=== PATIENT | male | born 1955 | race African-American/Black ===

== ENCOUNTER 2018-02-06 09:16 | Outpatient (CLI) | payer OTHER | END 2018-02-06 09:17 | disposition home or self-care (01) | LOC: BICRAD 09:16 | PROVIDERS: ATTEND Internal Medicine Rheumatology | DX: M17.0 Bilateral primary osteoarthritis of knee (principal) ==

== ENCOUNTER 2019-06-29 12:28 | Day surgery (SDC) | payer OTHER ==
[2019-06-28 15:49] VITALS: BMI 36.5
[2019-06-29 12:47] LABS: #Lymphocytes 1.8 thou/uL (1.20-3.40); #Monocytes 0.8 thou/uL (0.11-0.59); #Neutrophils 8.4 thou/uL (1.40-6.50); %Basophils 0.1 % (0.0-1.0); %Eosinophils 8.6 % (0.0-10.0); %Lymphocytes 14.9 % (21.0-51.0); %Monocytes 6.6 % (0.0-10.0); %Neutrophils 69.8 % (42.0-75.0); Hemoglobin 14.1 g/dL (14.0-18.0); Mean Corpuscular HGB CONC 32.5 g/dL (32.0-36.0); Mean Corpuscular Hemoglobin 32.5 pg (27.0-31.0); Mean Platelet Volume 7.2 fL (7.4-10.4); Platelet Count 273 thou/uL (130-400); RBC Distribution Width 11.8 % (11.5-14.5); Red Blood Cell (RBC) Count 4.33 mill/uL (4.70-6.10)
[2019-06-29 13:00] LABS: PTT 25.7 SEC (22.9-36.1); Prothrombin Time 13.4 SEC (12.0-14.7)
[2019-06-29] MEDS ORDERED: Lidocaine 1% PF 5 ML VIAL ONE (13:25)
--- NOTE | 2019-06-29 14:17 | ULT ---
US Thoracentesis History: Pleural fluid Comparison: Chest radiograph 2014 Findings: Patient was brought to the ultrasound suite. All questions were answered. Informed consent was obtained. Timeout performed. The patient's right back was prepped and draped in normal sterile fashion. 5 mL lidocaine was used to anesthetize the superficial and deep soft tissues. Under ultrasound guidance a 5 Tamazight catheter was placed with tip in the right pleural space. 900 mL of red-tinged fluid was aspirated. The patient tolerated the procedure well without complication. Impression: Technically successful right ultrasound-guided thoracentesis with removal of 900 mL red-t inged fluid.
[2019-06-29 14:38] VITALS: BP 134/78; TEMP 98.6
== END 2019-06-29 14:15 | disposition home or self-care (01) ==
LOC: ULT 12:28
PROVIDERS: ATTEND Internal Medicine
DX: C80.1 Malignant (primary) neoplasm, unspecified (principal); J91.0 Malignant pleural effusion; I10 Essential (primary) hypertension; M06.9 Rheumatoid arthritis, unspecified; Z88.5 Allergy status to narcotic agent
CPT/HCPCS: 36415; 76942; 83615; 84157; 85025; 85610; 85730; 87070; 87116; 87205; 87206; 88112; 88305; 88341; 88342; J2001

== ENCOUNTER 2019-07-10 10:40 | Inpatient (IN) | payer OTHER ==
--- NOTE | 2019-07-10 10:56 | CT ---
CT head noncontrast HISTORY: CVA. Right facial droop. Findings centered at the left posterior temporal and occipital region is a wedge-shaped subtle area o f decreased density extending through the overlying cerebral cortex measuring up to 4.6 cm greatest width at the base. No hemorrhage is apparent. No mass effect or shift of midline structures. Visualized paranasal sinuse s remain well aerated. IMPRESSION: Subtle early area of cytotoxic edema associated with the posterior distribution of left m iddle cerebral artery. Consistent with an acute infarct. Findings were called to Dr. Copeland in the emergency department at 1047 hours. Code CR.
--- NOTE | 2019-07-10 11:13 | CT ---
EXAM: CT angiogram great vessels neck with IV contrast and three-dimensional reconstructions CT angiogram brain with IV contrast and three-dimensional reconstructions PROVIDED CLINICAL HISTORY: Stroke COMPARISON: None FINDINGS: There is a normal three-vessel configuration of the great vessels at the arch. The common carotid, internal carotid, subclavian and vertebral arteries demonstrate no evidence for s ignificant stenosis. There is no evidence for focal vessel stenosis, branch occlusion or aneurysm involving the intracrani al circulation. There is partially visualized patchy consolidation involving the right hemithorax with apparently par tially loculated fluid at the right lung apex. Multiple enlarged lymph nodes are seen in the right supraclavicular and internal jugular regions. Possible mass involving the right hilum versus adenopat hy. There is a lytic lesion with associated bone destruction and adjacent soft tissue mass involving the medial right clavicle IMPRESSION: 1. Normal CT angiogram of the great vessels of the neck. 2. Normal CT angiogram of the brain. 3. Right hemithoracic and supraclavicular abnormalities as described above, compatible with neoplasm. Correlation with nonemergent dedicated thoracic imaging is recommended if not previously performed.
[2019-07-10 11:15] LABS: ALT (SGPT) 32 U/L (8-55); AST (SGOT) 21 U/L (5-34); Alkaline Phosphatase 72 U/L (40-110); Anion Gap 17 mmol/L (10-20); BUN (Urea Nitrogen) 22 mg/dL (8.4-25.7); Bilirubin, Total 0.6 mg/dL (0.2-1.2); Calc. Creatinine Clearance 0 mL/min (70-130); Calcium 9.8 mg/dL (7.8-10.44); Carbon Dioxide 24 mmol/L (23-31); Chloride 101 mmol/L (98-107); Estimated GFR-MDRD 54; Glucose 121 mg/dL (80-115); INR-International Normal Ratio 1.2; PTT 25.8 SEC (22.9-36.1); Prothrombin Time 14.7 SEC (12.0-14.7); Sodium 138 mmol/L (136-145)
[2019-07-10 11:26] LABS: #Basophils 0.1 thou/uL (0.0-0.2); #Lymphocytes 2.3 thou/uL (1.20-3.40); #Monocytes 1.3 thou/uL (0.11-0.59); #Neutrophils 10.5 thou/uL (1.40-6.50); %Basophils 0.4 % (0.0-1.0); %Eosinophils 17.6 % (0.0-10.0); %Lymphocytes 13.5 % (21.0-51.0); %Monocytes 7.7 % (0.0-10.0); %Neutrophils 60.8 % (42.0-75.0); Hemoglobin 15.3 g/dL (14.0-18.0); Mean Corpuscular HGB CONC 33.4 g/dL (32.0-36.0); Mean Corpuscular Hemoglobin 32.2 pg (27.0-31.0); Mean Corpuscular Volume 96.5 fL (78.0-98.0); Mean Platelet Volume 7.8 fL (7.4-10.4); Platelet Count 104 thou/uL (130-400); Platelet Morphology Comment Appears Decreased; RBC Distribution Width 11.9 % (11.5-14.5); Red Blood Cell (RBC) Count 4.73 mill/uL (4.70-6.10); White Blood Cell (WBC) Count 17.3 thou/uL (4.8-10.8)
[2019-07-10 11:27] LABS: MDiff Complete? YES
[2019-07-10] MEDS ORDERED: Iopamidol-370 76% 500 ML 1 ML ONE (11:49)
[2019-07-10] MEDS ORDERED: Clopidogrel Bisulfate 75 MG TAB ONE (11:51)
[2019-07-10 12:16] LABS: CKMB 4.7 ng/mL (0-6.6)
[2019-07-10] MEDS ORDERED: Acetaminophen 500 MG TAB ONE (13:08)
[2019-07-10] MEDS ORDERED: Aspirin 325 MG TAB ONE (13:54)
[2019-07-10] MEDS ORDERED: Bisacodyl 10 MG SUPP PR PRN (13:55)
[2019-07-10] MEDS ORDERED: Aspirin Chewable 81 MG TAB ONE (13:55)
[2019-07-10] MEDS ORDERED: Ondansetron PF 4 MG/2 ML Vial IVP PRN (13:55)
[2019-07-10] MEDS ORDERED: Ondansetron ODT 4 MG TAB PO PRN (13:55)
[2019-07-10] MEDS ORDERED: Senokot S 8.6-50 MG TAB PO PRN (13:55)
[2019-07-10] MEDS ORDERED: hydrALAZINE 20 MG/ML VIAL SLOW IVP PRN (13:55)
[2019-07-10] MEDS ORDERED: Enoxaparin Sodium 40 MG/0.4 ML SYRINGE SC SCH (14:00)
[2019-07-10] MEDS ORDERED: Sodium Bicarbonate 75 MEQ in Sodium Chloride 0.45% 1,000 ML IV SCH (14:15)
[2019-07-10 14:28] LABS: Troponin I 1.324 ng/mL (< 0.028)
[2019-07-10 14:59] VITALS: BMI 25.4
--- NOTE | 2019-07-10 15:30 | HP ---
PRIMARY CARE PHYSICIAN: None listed. CHIEF COMPLAINT: Slurred speech and right facial droop. HISTORY OF PRESENT ILLNESS: A 63-year-old male with known history of hypertension and rheumatoid arthritis as well as recent diagnosis of lung cancer, not yet on chemotherapy, brought in by EMS due to acute onset of slurred speech and right facial droop noticed on waking up this morning around 8 o'clock. The patient was last seen well last night when he went to bed. There was no associated overt weakness of the limbs, and the patient was able to ambulate. Further evaluation in the ED showed abnormal CT scan with subtle early area of cytotoxic edema associated with the posterior distribution of left middle cerebral artery consistent with acute infarct. The patient also was noticed to have abnormal Q waves in inferior leads associated with elevated troponin, concerning for acute CO, though the patient denied any chest pain, shortness of breath, palpitation, or dizziness. There is no history of cough, shortness of breath, fever, dizziness, abdominal pain, leg swelling, nausea, vomiting, change in bowel habit, hematuria, hematochezia, melena, or weight loss. The patient admitted to headache and urinary urgency. He has history of BPH and is on Flomax. The patient received Plavix in the ER, and it was felt that the patient was on methotrexate, but he had an adverse interaction with methotrexate, hence aspirin was not given. PAST MEDICAL HISTORY: 1. Hypertension. 2. Rheumatoid arthritis. 3. BPH. 4. Recent lung cancer diagnosis. PAST SURGICAL HISTORY: 1. Back surgery. 2. Thyroidectomy. 3. Left ankle surgery. 4. Left wrist surgery. FAMILY HISTORY: There is significant history of hypertension in parents who have now . SOCIAL HISTORY: The patient lives with spouse. He used to smoke about half a pack a day for several years, but stopped about 2 weeks ago. He denied alcohol or recreational drug use. The patient wants to be full code with spouse is his surrogate decision maker. ALLERGIES: NO KNOWN DRUG ALLERGIES REPORTED. MEDICATIONS: Prior to hospital medications: 1. Lisinopril/hydrochlorothiazide 20/12.5 one tablet p.o. daily. 2. Tamsulosin 0.4 mg daily. 3. Triamterene-hydrochlorothiazide 1 tablet p.o. daily. 4. Levothyroxine 200 mcg p.o. daily. 5. Note that the patient is no more on methotrexate and Remicade since diagnosis of lung cancer. REVIEW OF SYSTEMS: 12-point review of systems performed was negative other than pertinent positives and negatives included in the History of Present Illness. PHYSICAL EXAMINATION: VITAL SIGNS: Blood pressure 109/91, pulse 89, respiratory rate 16, and SpO2 of 98% on room air. GENERAL: Heavily built male, in no obvious distress. Afebrile. Anicteric. Acyanotic. HEENT: Normocephalic, atraumatic. Oral mucosa is moist. NECK: Supple with no JVD. CARDIOVASCULAR: Regular rhythm and rate with normal heart sounds 1 and 2. No murmur was appreciated. RESPIRATORY: Decreased air entry right hemithorax with some transmitted sound. Work of breathing was not increased. GI: Full, soft, nontender, nondistended with normal bowel sounds. EXTREMITIES: Bilateral wrist nodules and mild tenderness of left wrist noted. Otherwise, extremities are grossly normal looking atraumatic with no edema or erythema. 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 Oriented x3. Dysarthria and expressive and receptive aphasia noted. Cranial nerves 2 through 12 are grossly intact except mild right facial droop. The patient is able to have a conversation with some limitation due to dysarthria and aphasia. Moves all extremities with symmetric power. Questionable left upper limb weakness is noted, but this could be due to left wrist tenderness. There is however no pronator drift of both lower on upper limbs. DIAGNOSTIC DATA: CBC showed WBC count of 17, hemoglobin of 15, MCV of 96.5, and platelets of 104. Coagulation panel showed PT 14.7, INR 1.2, PTT 25.8. CMP showed sodium 138, potassium 4.0, chloride 101, CO2 of 24, BUN 22, creatinine 1.58, glucose 121, calcium 9.8, total bilirubin 0.6, AST 21, ALT 32, alkaline phosphatase 72, total protein 7.0, albumin 4.0, and globulin 3.0. Initial troponin showed CK 4.7, troponin 1.263. EKG showed normal sinus rhythm with inferior Q-waves, suggestive of inferior CO. CT scan of the brain showed wedge-shaped subtle area of decreased density extending through the overlying cerebral cortex measuring up to 4.6 cm in its greatest width at the base. No hemorrhage is apparent. Also, no mass effect or shift of midline structures were noticed. Visualized paranasal sinuses remain well aerated. CT angio of head and neck showed normal CT angio of great vessels of the neck. Normal CT angio of the brain. Right hemithoracic and supraclavicular abnormalities compatible with neoplasm. There is a partially-visualized patchy consolidation involving the right hemithorax with apparently partially-loculated fluid at the right lung apex. Multiple enlarged lymph nodes are seen in the right supraclavicular and internal jugular regions. Possible mass involving the right hilum versus adenopathy is noted as well as light thick lesion with associated bone destruction and adjacent soft tissue mass involving the medial right clavicle. ASSESSMENT: 1. Cerebral infarction involving the posterior distribution of left middle cerebral artery. 2. Rule out brain metastasis. 3. Metastatic lung cancer, yet on treatment. 4. Hypertension. 5. Benign prostatic hypertrophy. 6. Receptive and expressive aphasia, as well as dysarthria. 7. Rheumatoid arthritis. 8. Renal insufficiency: Most likely acute on chronic or acute. The patient is on double diuretic therapy, which may be responsible. PLAN: 1. Admit the patient to Stroke Unit. 2. We will get serial troponin. 3. We will start antiplatelet therapy with aspirin and Plavix given elevated troponin concerning for acute CO. 4. We will get MRI of the brain with and without contrast to rule in cerebrovascular accident and/or metastatic brain lesion. 5. We will allow permissive hypertension. 6. We will hold antihypertensives for now. 7. We will actually start IV fluid therapy with bicarb containing fluid given soft blood pressure and elevated creatinine. 8. Heart healthy diet will be commenced. 9. We will monitor blood glucose. 10. We will continue Flomax. 11. We will also start the patient on statin. 12. We will consult Neurology and Cardiology. 13. We will also get echocardiogram of the heart. 14. Code status, full code. Spouse is the surrogate decision maker. Further treatment to follow depending on hospital course. Job ID: [id number] [facility]
[2019-07-10 17:38] LABS: Critical Call Chem Troponin I RESULT DECREASING; Troponin I 1.322 ng/mL (< 0.028)
[2019-07-10] MEDS ORDERED: FLU VACC QS2019-20(6MOS UP)/PF 60 MCG/0.5 ML SYRINGE IM ONE (21:00)
[2019-07-10] MEDS: Atorvastatin Calcium 40 MG TAB PO SCH (21:49)
[2019-07-10] MEDS: Acetaminophen 325 MG TAB PO PRN (21:50)
[2019-07-10] MEDS: Famotidine 20 MG TAB PO SCH (21:50)
[2019-07-10] MEDS: Guaifenesin DM 100-10/5 ML UDCUP PO PRN (21:56)
[2019-07-11 05:33] LABS: Anion Gap 14 mmol/L (10-20); BUN (Urea Nitrogen) 21 mg/dL (8.4-25.7); Calc. Creatinine Clearance 67 mL/min (70-130); Carbon Dioxide 24 mmol/L (23-31); Chloride 101 mmol/L (98-107); Estimated GFR-MDRD 55; Potassium 4.1 mmol/L (3.5-5.1); Sodium 135 mmol/L (136-145)
[2019-07-11 05:34] LABS: ALT (SGPT) 25 U/L (8-55); AST (SGOT) 16 U/L (5-34); Albumin 3.4 g/dL (3.4-4.8); Alkaline Phosphatase 72 U/L (40-110); Bilirubin, Total 0.4 mg/dL (0.2-1.2); Calcium 9.2 mg/dL (7.8-10.44); Cardiac Risk 4.1 (Less than 4.5); Cholesterol 160 mg/dl (< 200 Desired); Globulin 2.8 g/dL (2.4-3.5); Glucose 93 mg/dL (80-115); HDL Cholesterol 39 mg/dL (>60 Neg Risk); LDL Cholesterol, Calculated 96 mg/dL; Protein, Total 6.2 g/dL (5.8-8.1); Triglycerides 126 mg/dL (Less than 150)
[2019-07-11 06:58] LABS: Band 9 % (5-11); Eosinophils 18 % (0-10); Hemoglobin 14.3 g/dL (14.0-18.0); Lymphocytes 19 % (21-51); MDiff Complete? YES; Mean Corpuscular HGB CONC 33.6 g/dL (32.0-36.0); Mean Corpuscular Hemoglobin 32.4 pg (27.0-31.0); Mean Corpuscular Volume 96.3 fL (78.0-98.0); Mean Platelet Volume 8.4 fL (7.4-10.4); Monocytes 2 % (0-10); Neutrophil 52 % (42-75); Platelet Count 111 thou/uL (130-400); Platelet Morphology Comment Appears Decreased; Red Blood Cell (RBC) Count 4.42 mill/uL (4.70-6.10); White Blood Cell (WBC) Count 17.2 thou/uL (4.8-10.8)
[2019-07-11 07:49] LABS: Bacteria/HPF None Seen HPF (None Seen); Bilirubin Negative (Negative); Blood, Urine 3+ (Negative); Clarity Clear (Clear); Glucose, Urine (Dipstick) Normal (Negative); Leukocyte Negative Leu/uL (Negative); Nitrite Negative (Negative); Protein, Urine (Dipstick) 20 mg/dL (Neg-Trace); RBC/HPF Greater than 50 HPF (0-3); Squamous Epithelial None Seen HPF (0-3); Urobilinogen Normal mg/dL (Less than 2); WBC/HPF 21-50 HPF (0-3)
[2019-07-11] MEDS: Famotidine 20 MG TAB PO SCH ×2 (10:00→20:35)
[2019-07-11] MEDS: Enoxaparin Sodium 40 MG/0.4 ML SYRINGE SC SCH (10:00)
[2019-07-11] MEDS: Aspirin 325 mg Enteric Coated Tablet PO SCH (10:00)
[2019-07-11] MEDS: Acetaminophen 325 MG TAB PO PRN ×2 (10:01→21:10)
--- NOTE | 2019-07-11 10:12 | MRI ---
EXAM: MRI Brain W WO Con PROVIDED CLINICAL HISTORY: Stroke COMPARISON: CT brain 07/10/2019 FINDINGS: There is gyriform cortical of restricted diffusion involving the posterior distribution of the left m iddle cerebral artery compatible with recent infarction. There are numerous bilateral punctate foci of restricted diffusion involving the cerebral white matter as well as several small foci involving t he cerebellum. There is a small focus of masslike enhancement involving the left frontal cortex (image 18 series 9) as well as several tiny foci of masslike enhancement involving the right posterior frontal cortex (for example image 20 series 9). The ventricular system appears normal in size and morphology. There is no evidence for intracranial h emorrhage. There is no shift of the midline structures. The basilar cisterns appear patent. Appropriate flow voids within the major intracranial vessels are demonstrated. The extracranial soft tissues and calvarial marrow signal demonstrate an unremarkable CT appearance. IMPRESSION: 1. Recent posterior distribution left MCA infarction. 2. Widespread small foci of restricted diffusion compatible with recent embolic strokes. 3. Foci of cortical enhancement involving both frontal lobes, suspicious for metastatic disease.
[2019-07-11] MEDS: Guaifenesin DM 100-10/5 ML UDCUP PO PRN ×2 (11:23→18:18)
--- NOTE | 2019-07-11 13:04 | PDOC.HOSPP ---
- Subjective Encounter Date: 07/11/19 Encounter Time: 10:32 Subjective: 63 y/o male with HTN, recently diagnosed R lung cancer admitted with acute onset of facial droop and aphasia. CT showed wedge shaped edema suggestive of acute CVA which now is confirmed by MRI. Feeling better. Still with aphasia and dysarthria but overall better. Complaining of some headache. - Objective Vital Signs & Weight: Vital Signs (12 hours) Temp Pulse Resp BP Pulse Ox 07/11/19 11:26 98.4 F 88 16 128/74 96 07/11/19 07:20 97 07/11/19 07:14 98.4 F 80 16 115/63 97 07/11/19 03:51 98.7 F 81 16 140/71 95 Weight Weight 209 lb I&O: 07/10/19 07/11/19 07/12/19 06:59 06:59 06:59 Intake Total 240 300 Balance 240 300 Result Diagrams: 07/11/19 04:46 07/11/19 04:46 Additional Labs: Accuchecks 07/11/19 07/11/19 07/10/19 10:31 06:11 20:00 POC Glucose 106 91 165 H 07/10/19 16:52 POC Glucose 116 H Hospitalist ROS - Medication Medications: Active Medications Generic Name Dose Route Start Last Admin Trade Name Freq PRN Reason Stop Dose Admin Acetaminophen 650 mg 07/10/19 13:55 07/11/19 10:01 Tylenol PO 650 mg Q4H PRN Administration Headache/Fever/Mild Pain (1-3) Aspirin 325 mg 07/11/19 09:00 07/11/19 10:00 Ecotrin PO 325 mg DAILY MCIHAEL Administration Atorvastatin Calcium 40 mg 07/10/19 21:00 07/10/19 21:49 Lipitor PO 40 mg HS MICHAEL Administration Enoxaparin Sodium 40 mg 07/11/19 09:00 07/11/19 10:00 Lovenox SC 40 mg 0900 MICHAEL Administration Famotidine 20 mg 07/10/19 21:00 07/11/19 10:00 Pepcid PO 20 mg BID MICHAEL Administration Guaifenesin/Dextromethorphan 15 ml 07/10/19 13:55 07/11/19 11:23 Robitussin Dm PO 15 ml Q4H PRN Administration Cough - Exam General Appearance: awake alert Eye: anicteric sclera ENT: normocephalic atraumatic, moist mucosa Neck: supple, symmetric Heart: RRR Respiratory - other findings: decreased air entry right hemithorax with transmitted sound. Gastrointestinal: soft, non-tender, non-distended, normal bowel sounds Extremities: no cyanosis, no edema Neurological: cranial nerve grossly intact, no new deficit Neurological - other findings: dysarthria and dysphasia noted. Moving all limbs. Psychiatric: A&O x 3 Hosp A/P (1) Acute CVA (cerebrovascular accident) Code(s): I63.9 - CEREBRAL INFARCTION, UNSPECIFIED Status: Acute (2) Rheumatoid arthritis Code(s): M06.9 - RHEUMATOID ARTHRITIS, UNSPECIFIED Status: Acute (3) Lung cancer, primary, with metastasis from lung to other site Code(s): C34.90 - MALIGNANT NEOPLASM OF UNSP PART OF UNSP BRONCHUS OR LUNG Status: Acute (4) HTN (hypertension) Code(s): I10 - ESSENTIAL (PRIMARY) HYPERTENSION Status: Acute (5) NURIS (acute kidney injury) Code(s): N17.9 - ACUTE KIDNEY FAILURE, UNSPECIFIED Status: Acute (6) Dysphasia due to cerebrovascular disease Code(s): I69.921 - DYSPHASIA FOLLOWING UNSPECIFIED CEREBROVASCULAR DISEASE Status: Acute (7) BPH (benign prostatic hyperplasia) Code(s): N40.0 - BENIGN PROSTATIC HYPERPLASIA WITHOUT LOWER URINRY TRACT SYMP Status: Acute (8) Elevated troponin Code(s): R79.89 - OTHER SPECIFIED ABNORMAL FINDINGS OF BLOOD CHEMISTRY Status : Acute (9) Abnormal ECG Code(s): R94.31 - ABNORMAL ELECTROCARDIOGRAM [ECG] [EKG] Status: Acute - Plan Continue antiplatelets and statin. Avoid antihypertensives for now Awaiting Echo Awaiting Neurology and cardiology consult. Start oral antibiotic for obstructive pneumonia/leucocytosis. Restart flomax and levothyroxine.
--- NOTE | 2019-07-11 14:32 | CON ---
DATE OF CONSULTATION: 07/11/2019 CONSULTING PHYSICIAN: Hospitalist Service. IMPRESSION: 1. Left posterior division middle cerebral artery stroke with minimal receptive aphasia. 2. Lung cancer. PLAN: 1. Continue aspirin and Lipitor as you have undertaken. 2. Review echocardiogram to rule out a cardioembolic source. HISTORY OF PRESENT ILLNESS: Mr. Manley is a 63-year-old man with no significant past history other than a recent diagnosis of lung cancer. He awoke with some difficulty speaking. He came into the hospital for evaluation. His initial CT scan of the brain showed some of early edema in the left MCA territory. MRI of the brain confirmed diffusion abnormality consistent with a stroke in the left MCA posterior division territory. His CT angiogram was unremarkable for any stenosis. He reports he is having some minimal difficulty understanding what people say. He denies any vision loss or lateralized weakness or numbness. He denies any prior history of transient deficits. He has no other cardiovascular risk factors. He is seeing Dr. Gallegos for evaluation and treatment of his lung cancer. He reports having a cough, but denies any shortness of breath, chest pain, or hemoptysis. PAST MEDICAL HISTORY: Otherwise, negative. ALLERGIES: CODEINE. SOCIAL HISTORY: No tobacco or alcohol. FAMILY HISTORY: Noncontributory. REVIEW OF SYSTEMS: Ten-system review of systems is otherwise negative. PHYSICAL EXAMINATION: VITAL SIGNS: Blood pressure 115/63, pulse 80, respirations 16, and temperature 98.4. HEENT: Pupils are equal and reactive. Conjunctivae are clear. Oropharynx clear. NECK: Supple. EXTREMITIES: No cyanosis, clubbing, or edema. NEUROLOGIC: He was alert and cooperative. His speech was fluent and clear. No cranial nerve deficits were noted. 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 There was no tremor or dysmetria. Sensation was intact to touch. He could sit at the bedside without any difficulty. He walks independently. LABORATORY STUDIES: White blood cell count 17.3, hemoglobin 15.3, and platelet count 104. Coagulation panel was normal. Chemistry panel is unremarkable with a cardiac risk ratio of 4.1. Urinalysis showed hematuria and 21 to 50 white cells. SUMMARY: This is a middle-aged man with a recent diagnosis of lung cancer. He presents with an area of acute ischemia in the left posterior division of the MCA. We will need to rule out a cardioembolic etiology, but given his cancer, he may be in a hypercoagulable state. I agree with current management. He appears otherwise stable and could be discharged shortly. Job ID: [id number]
--- NOTE | 2019-07-11 16:38 | CON ---
DATE OF CONSULTATION: HISTORY OF PRESENT ILLNESS: Albino Manley is a 63-year-old black male, who on June 29, 2019, underwent ultrasound-guided right thoracentesis with removal of 900 mL of blood-tinged fluid. This has come back as adenocarcinoma. He has not undergone treatment yet for that. He then was admitted yesterday after awakening with difficulty speaking. He denied any arm or leg weakness. Head CT revealed stroke of the distribution of the left middle cerebral artery. [place] [facility] [place] angiography revealed normal great vessels of the neck and of the brain. There are changes in the right lung, enlarged lymph nodes that are suspicious for malignancy. Today, he underwent a brain MRI, which revealed recent posterior distribution left middle cerebral artery infarction, widespread small focal changes compatible with recent embolic strokes, and cortical enhancement involving both frontal lobes, suspicious for metastatic disease. Mr. Manley denies ever having any cardiac problems in the past. He denies any chest discomfort, especially over the 24 hours prior to admission. PAST MEDICAL HISTORY: Hypertension, rheumatoid arthritis, benign prostatic hypertrophy, recent diagnosis of adenocarcinoma of the lung. PAST SURGICAL HISTORY: Back surgery, thyroidectomy, left ankle and left wrist surgery. MEDICATIONS: 1. Celebrex 200 b.i.d. 2. Folvite 1 mg daily. 3. Synthroid 200 mcg daily. 4. Lisinopril/hydrochlorothiazide 20/12.5 daily. 5. Flomax 0.4 mg daily. 6. Prednisolone 10 mg b.i.d. ALLERGIES: CODEINE. SOCIAL HISTORY: He smokes 1/2 pack per day. FAMILY HISTORY: Negative for coronary artery disease. REVIEW OF SYSTEMS: A 10-point review of systems is unremarkable. PHYSICAL EXAMINATION: VITAL SIGNS: Temperature 128/74, pulse of 88. HEENT: PERRL. NECK: Supple. CHEST: Clear. CARDIAC: S1 and S2 normal without any S3, S4, or murmurs. Carotid upstrokes normal without bruits. ABDOMEN: Normal bowel sounds without tenderness or organomegaly. The abdomen is obese. EXTREMITIES: Revealed no clubbing, cyanosis, or edema. NEUROLOGIC: Revealed some expressive aphasia and mild right facial droop. LABORATORY DATA: EKG revealed normal sinus rhythm. There is a Q wave in lead III, however, it is narrow. No significant Q wave in II or F and I doubt that this represents an inferior infarction. Hemoglobin 14.3, hematocrit 42.6, white count 17,200, and platelets 111,000. INR 1.2. Sodium 135, potassium 4.1, chloride 101, carbon dioxide 24, BUN 21, creatinine 1.56. Cholesterol 160, triglycerides 126, HDL 39, LDL 96. Troponin I 1.324. IMPRESSION: 1. [id number] myocardial infarction, type 2, probably secondary to his cerebrovascular accident. 2. Cerebrovascular accident with evidence of posterior distribution of left middle cerebral artery stroke. 3. Questionable brain metastasis in the frontal area. 4. Adenocarcinoma of the right lung, untreated yet at this time. 5. Hypertension. 6. Benign prostatic hypertrophy. 7. Rheumatoid arthritis. 8. Renal insufficiency. 9. LDL of 96. PLAN: Echocardiogram will be performed. The patient has not had any chest discomfort, and his troponin I elevation is probably due to his stroke. With a stroke and LDL of 96, he should be started on a statin with a goal of LDL less than 70. Consideration could be given to noninvasive testing as an outpatient. Job ID: [id number]
[2019-07-11] MEDS: Atorvastatin Calcium 40 MG TAB PO SCH (21:09)
[2019-07-11] MEDS: Doxycycline 100 MG CAP PO SCH (21:09)
[2019-07-11] MEDS: guaiFENesin ER 600 MG TAB PO SCH (21:10)
[2019-07-11] MEDS: Amoxicillin/Potassium Clav 875 MG TAB PO SCH (21:10)
[2019-07-12 05:58] LABS: Albumin 3.6 g/dL (3.4-4.8); Anion Gap 15 mmol/L (10-20); BUN (Urea Nitrogen) 18 mg/dL (8.4-25.7); BUN/Creatinine Ratio 11.69; Calc. Creatinine Clearance 68 mL/min (70-130); Calcium 9.6 mg/dL (7.8-10.44); Carbon Dioxide 26 mmol/L (23-31); Chloride 100 mmol/L (98-107); Estimated GFR-MDRD 56; Glucose 91 mg/dL (80-115); Phosphorus 3.6 mg/dL (2.3-4.7); Potassium 4.3 mmol/L (3.5-5.1); Sodium 137 mmol/L (136-145)
[2019-07-12] MEDS ORDERED: Levothyroxine Sodium 100 MCG TAB PO SCH (06:00)
[2019-07-12 06:08] LABS: Band 6 % (5-11); Eosinophils 16 % (0-10); Hemoglobin 13.8 g/dL (14.0-18.0); Lymphocytes 18 % (21-51); MDiff Complete? YES; Mean Corpuscular HGB CONC 33.1 g/dL (32.0-36.0); Mean Corpuscular Hemoglobin 32.1 pg (27.0-31.0); Mean Corpuscular Volume 96.9 fL (78.0-98.0); Monocytes 5 % (0-10); Neutrophil 55 % (42-75); Platelet Count 117 thou/uL (130-400); Platelet Morphology Comment Appears Decreased; RBC Distribution Width 11.9 % (11.5-14.5); Red Blood Cell (RBC) Count 4.31 mill/uL (4.70-6.10); White Blood Cell (WBC) Count 18.2 thou/uL (4.8-10.8)
[2019-07-12] MEDS: Amoxicillin/Potassium Clav 875 MG TAB PO SCH (08:37)
[2019-07-12] MEDS: Aspirin 325 mg Enteric Coated Tablet PO SCH (08:37)
[2019-07-12] MEDS: guaiFENesin ER 600 MG TAB PO SCH (08:38)
[2019-07-12] MEDS: Famotidine 20 MG TAB PO SCH (08:38)
[2019-07-12] MEDS: Doxycycline 100 MG CAP PO SCH (08:38)
[2019-07-12] MEDS: Acetaminophen 325 MG TAB PO PRN (08:38)
[2019-07-12] MEDS ORDERED: Folic Acid 1 MG TAB PO SCH (09:00)
[2019-07-12] MEDS ORDERED: Tamsulosin HCl 0.4 MG CAP PO SCH (09:00)
--- NOTE | 2019-07-12 09:15 | PDOC.HOSPP ---
- Subjective Encounter Date: 07/12/19 Encounter Time: 12:00 Subjective: Patient reports continued improvement in speech. No other complaints. Ambulating well and discharged to walking program by PT. Tolerating diet from speech therapy. - Objective Vital Signs & Weight: Vital Signs (12 hours) Temp Pulse Resp BP BP Pulse Ox 07/12/19 07:27 97.9 F 93 20 134/76 94 L 07/12/19 03:08 98.6 F 80 20 148/81 H 95 07/11/19 23:10 98.7 F 98 20 134/82 93 L Weight Weight 209 lb I&O: 07/11/19 07/12/19 07/13/19 06:59 06:59 06:59 Intake Total 240 900 900 Balance 240 900 900 Result Diagrams: 07/12/19 04:58 07/12/19 04:58 Additional Labs: Accuchecks 07/12/19 07/11/19 07/11/19 05:31 20:17 16:39 POC Glucose 88 109 111 H 07/11/19 10:31 POC Glucose 106 Hospitalist ROS - Review of Systems Constitutional: denies: fever, chills Respiratory: denies: cough, shortness of breath Cardiovascular: denies: chest pain, palpitations, orthopnea Gastrointestinal: denies: nausea, vomiting, abdominal pain Neurological: reports: change in speech - Medication Medications: Active Medications Generic Name Dose Route Start Last Admin Trade Name Freq PRN Reason Stop Dose Admin Acetaminophen 650 mg 07/10/19 13:55 07/12/19 08:38 Tylenol PO 650 mg Q4H PRN Administration Headache/Fever/Mild Pain (1-3) Amoxicillin/Clavulanate Potassium 875 mg 07/11/19 21:00 07/12/19 08:37 Augmentin PO 875 mg Q12HR MICHAEL Administration Aspirin 325 mg 07/11/19 09:00 07/12/19 08:37 Ecotrin PO 325 mg DAILY MICHAEL Administration Atorvastatin Calcium 40 mg 07/10/19 21:00 07/11/19 21:09 Lipitor PO 40 mg HS MICHAEL Administration Doxycycline Hyclate 100 mg 07/11/19 21:00 07/12/19 08:38 Vibramycin PO 100 mg BID MICHAEL Administration Enoxaparin Sodium 40 mg 07/11/19 09:00 07/11/19 10:00 Lovenox SC 40 mg 0900 MICHAEL Administration Famotidine 20 mg 07/10/19 21:00 07/12/19 08:38 Pepcid PO 20 mg BID MICHAEL Administration Folic Acid 1 mg 07/12/19 09:00 07/12/19 08:38 Folvite PO 1 mg DAILY MICHAEL Administration Guaifenesin 1,200 mg 07/11/19 21:00 07/12/19 08:38 Mucinex PO 1,200 mg Q12HR MICHAEL Administration Guaifenesin/Dextromethorphan 15 ml 07/10/19 13:55 07/11/19 18:18 Robitussin Dm PO 15 ml Q4H PRN Administration Cough Levothyroxine Sodium 200 mcg 07/12/19 06:00 07/12/19 06:11 Synthroid PO 200 mcg 0600 MICHAEL Administration Sodium Chloride 10 ml 07/10/19 13:55 07/11/19 21:10 Flush - Normal Saline IVF 10 ml PRN PRN Administration Saline Flush Tamsulosin HCl 0.4 mg 07/12/19 09:00 07/12/19 08:38 Flomax PO 0.4 mg DAILY MICHAEL Administration - Exam General Appearance: NAD, awake alert Eye: anicteric sclera ENT: moist mucosa Heart: RRR, no murmur, no gallops, no rubs Respiratory: CTAB, no wheezes, no rales, no ronchi Gastrointestinal: soft, non-tender, non-distended, normal bowel sounds Extremities: no cyanosis, no clubbing, no edema Neurological - other findings: some trouble word finding, but able to communicate decently Musculoskeletal: normal tone, normal strength, no muscle wasting Psychiatric: normal affect, normal behavior, A&O x 3 Hosp A/P (1) Acute CVA (cerebrovascular accident) Code(s): I63.9 - CEREBRAL INFARCTION, UNSPECIFIED Status: Acute (2) Dysphasia due to cerebrovascular disease Code(s): I69.921 - DYSPHASIA FOLLOWING UNSPECIFIED CEREBROVASCULAR DISEASE Status: Acute Plan: Speech therapy not yet able to evaluate (3) Elevated troponin Code(s): R79.89 - OTHER SPECIFIED ABNORMAL FINDINGS OF BLOOD CHEMISTRY Status : Acute Plan: likely due to stroke, Dr. Olson consulted, recommends strict control of cholesterol, reeval for possible cardiac testing as outpatient (4) Leukocytosis Code(s): D72.829 - ELEVATED WHITE BLOOD CELL COUNT, UNSPECIFIED Status: Acute Plan: present on admission, placed on antibiotics in case of post obstructive pneumonia from the lung cancer, no symptoms currently, will discharge with a further 9 days of antibiotics (5) NURIS (acute kidney injury) Code(s): N17.9 - ACUTE KIDNEY FAILURE, UNSPECIFIED Status: Acute Plan: uncertain if underlying chronic disease, stable (6) Lung cancer, primary, with metastasis from lung to other site Code(s): C34.90 - MALIGNANT NEOPLASM OF UNSP PART OF UNSP BRONCHUS OR LUNG Status: Acute Qualifiers: Laterality: right Qualified Code(s): C34.91 - Malignant neoplasm of unspecified part of right bronchus or lung Plan: adenocarcinoma, likely metastasis to brain - Plan continue antibiotics, PT/OT, speech therapy Patient given instructions for thickened liquids and chopped foods by speech therapy, family understands importance of following these. Patient cleared for discharge by Neuro and Cardiology. Has a PET scan scheduled for . Will d /c home. HH with speech therapy. F/u with oncology for PET and further treatment for cancer.
[2019-07-12] MEDS: Enoxaparin Sodium 40 MG/0.4 ML SYRINGE SC SCH (09:59)
[2019-07-12 15:31] VITALS: BP 128/65; TEMP 98.5
--- NOTE | 2019-07-12 21:02 | CON ---
DATE OF CONSULTATION: REASON FOR CONSULT: Lung cancer. HISTORY OF PRESENT ILLNESS: Mr. Manley is a 63-year-old male, who was seen in urgent care in late May and had a CT angio of his chest, which showed an ill-defined mass or conglomeration of lymph nodes in the right hilum plus a 22 mm soft tissue nodule in the chest. He underwent a thoracentesis with removal of 900 mL of red tinged fluid, it showed metastatic adenocarcinoma, likely lung primary. He had lost about 5 pounds. He had a poor appetite and had frequent diarrhea. He was seen by Dr. Gallegos on July 06 and was scheduled for an MRI of the brain and a PET scan. He presented to the emergency room on the with slurred speech and right-sided facial droop. He underwent a CT scan and then a brain MRI, which showed no evidence of metastatic lesion; however, he did have a posterior left MCA infarction. He continues to have some slurred speech and mild dysphagia. He has some visual changes, but no neuromuscular changes in his arms or legs. He is ambulatory. Denies any complaints at this time. We were asked to see him regarding further workup. PAST MEDICAL HISTORY: 1. Hypertension. 2. Newly diagnosed metastatic lung cancer with malignant pleural effusion. 3. Arthritis. 4. Hypothyroidism. PAST SURGICAL HISTORY: 1. Back surgery. 2. Thoracentesis. ALLERGIES: CODEINE. HOME MEDICATIONS: 1. Celebrex. 2. Folic acid. 3. Levothyroxine. 4. Lisinopril. 5. Prednisone. 6. Flomax. FAMILY HISTORY: Hypertension. SOCIAL HISTORY: , lives with his spouse. History of smoking half pack for 30 years. Social drinker. No illicit drug use. REVIEW OF SYSTEMS: CONSTITUTIONAL: No fever, chills, or night sweats. HEENT: Positive for dysphagia and slurred speech. CV: No chest pain, palpitations, or syncope. RESPIRATORY: Positive for cough. GI: No nausea, vomiting, diarrhea, or constipation. : No dysuria or hematuria. MUSCULOSKELETAL: No joint or back pain. SKIN: No rash or pruritus. HEMATOLOGICAL: No bleeding, bruising, or clotting. NEUROLOGICAL: Positive for visual changes and expressive aphasia. PHYSICAL EXAMINATION: VITAL SIGNS: Temperature 97.9, pulse is 86, respiratory rate 16, blood pressure is 138/83. He is 95% on room air. GENERAL: This is a well-developed, well-nourished male, in no acute distress. HEENT: Normocephalic and atraumatic. Pupils are equal and reactive to light. NECK: Supple. CV: Regular rate and rhythm. LUNGS: Clear. ABDOMEN: Soft and nontender. Bowel sounds are positive. EXTREMITIES: No clubbing or cyanosis. SKIN: No rash. HEMATOLOGIC: No petechiae or purpura. PSYCH: He is alert, oriented, and appropriate. PERTINENT LABS AND X-RAYS: Current WBCs are 18.2, hemoglobin 13.8, hematocrit 41.8, platelet count 117,000. He has 55% neutrophils, 6% bands, and 15% lymphocytes. PT is 14.7, INR is 1.2, and PTT is 25.8. Sodium 137, potassium 4.3, chloride 100, CO2 is 26, BUN is 18, creatinine 1.54, calcium 9.6, phosphorus 3.6. Bilirubin 0.4, AST 16, ALT is 25, alkaline phosphatase is 72. Serum total protein 6.2, albumin 3.4, globulin 2.8. ASSESSMENT: 1. Acute cerebrovascular accident. 2. Newly diagnosed metastatic lung cancer. DISCUSSION: The patient has had an MRI of the brain. There is no evidence of metastatic lesions. He is scheduled for a PET scan on July 15. My understanding is that he will be discharged home in the next day or so with outpatient speech therapy. He will be able to have a PET scan on and follow up with Dr. Gallegos in the clinic on Friday, the , to discuss the results and further treatment options. Job ID: [id number]
--- NOTE | 2019-07-13 05:51 | DIS ---
DATE OF ADMISSION: 07/10/2019 DATE OF DISCHARGE: 07/12/2019 PRIMARY CARE PHYSICIAN: Silvio Coreas MD REASON FOR ADMISSION: Slurred speech and facial droop. DISCHARGE DIAGNOSES: 1. Acute ischemic stroke of the left middle cerebral artery distribution along with evidence of recent embolic strokes. 2. Dysphagia and dysarthria due to acute stroke. 3. Leukocytosis. 4. Acute versus chronic kidney disease. 5. Recently diagnosed lung cancer with metastasis including likely metastases to the brain. PROCEDURES: 1. CT of the brain without contrast showing subtle area of cytotoxic edema associated with the posterior distribution of the left middle cerebral artery consistent with acute stroke. 2. CT angiography of the head and neck showing normal great vessels of the neck and normal angiogram of the brain, but also showing patchy consolidation involving the right hemithorax with apparently partially loculated fluid in the right lung apex and multiple enlarged lymph nodes, also possible mass involving the right hilum versus adenopathy and a lytic lesion with associated bone destruction involving the medial right clavicle, all concerning for metastatic disease. 3. MRI of the brain with and without contrast showing a recent posterior distribution left MCA infarction along with a widespread small foci of restricted diffusion consistent with recent embolic strokes and foci of cortical enhancement involving both frontal lobes suspicious for metastatic disease. 4. Echocardiogram showing ejection fraction of 50% to 55%. No evidence of embolic source for the stroke. CONSULTATIONS: 1. Neurology, Dr. Bullard. 2. Cardiology, Dr. Olson. SUMMARY OF HOSPITAL COURSE: This is a 63-year-old male, who presented to the emergency room with acute onset of slurred speech and right facial droop and he noticed on waking up in the morning. He had imaging done as above and was admitted for an acute stroke. Neurology was consulted along with Cardiology due to the possible embolic stroke pattern. The patient was put on aspirin and atorvastatin. He was also treated with doxycycline and amoxicillin/clavulanic acid due to leukocytosis with concern for possible postobstructive infection in his lung. The patient did very well during his hospitalization. He initially was unable to speak much at all, but eventually he was able to find words easier and was able to start pronouncing better and was able to communicate quite well by the end of the hospitalization. He did have Speech Therapy evaluate him and recommend a diet that was safe for him to swallow. He was able to ambulate fine without any sequela of the stroke to the rest of his body. The patient was noted to have signs of metastatic disease from his recently diagnosed lung cancer. He has a PET scan scheduled for later this week, which he called [facility] and he is going to be able to make that as an outpatient. On the day of discharge, he was ambulating well, eating well, and ready to go home. DISCHARGE MANAGEMENT: Discharged home with Home Health for speech therapy. ACTIVITY: As tolerated. DIET: Healthy heart diet with nectar-thick liquids and chopped solids. FOLLOWUP: The patient is to follow up at the [facility] on July 15 at 10:30 a.m. for his PET scan. He is to follow up with Dr. Silvio Coreas in 7 days. DISCHARGE MEDICATIONS: 1. Augmentin 875 mg twice a day for 9 more days. 2. Doxycycline 100 mg twice a day for 9 more days. 3. Aspirin 325 mg daily, 30 tablets dispensed. 4. Atorvastatin 40 mg at night, 30 tablets dispensed. 5. Folic acid 1 mg daily. 6. Levothyroxine 200 mcg daily. 7. Tamsulosin 0.4 mg daily. 8. The patient is to hold his other antihypertensives until seen by his primary care physician, at which point, if his blood pressure is up and then he can consider restarting them. Arranging the details of this dictation took 32 minutes. Job ID: [id number]
== END 2019-07-12 17:16 | disposition home health service (06) | DRG 64 ==
LOC: ERS 10:40 → 2SE 12:44
PROVIDERS: ADMIT Internal Medicine Nephrology; ATTEND Internal Medicine Nephrology
DX: I63.412 Cerebral infarction due to embolism of left middle cerebral artery (principal); G93.6 Cerebral edema; J18.8 Other pneumonia, unspecified organism; I21.A1 Myocardial infarction type 2; C34.90 Malignant neoplasm of unspecified part of unspecified bronchus or lung; C79.31 Secondary malignant neoplasm of brain; N17.9 Acute kidney failure, unspecified; R47.81 Slurred speech; R29.810 Facial weakness; R13.10 Dysphagia, unspecified; R47.1 Dysarthria and anarthria; E89.0 Postprocedural hypothyroidism; R29.704 NIHSS score 4; R40.2362 Coma scale, best motor response, obeys commands, at arrival to emergency department; R40.2142 Coma scale, eyes open, spontaneous, at arrival to emergency department; R40.2252 Coma scale, best verbal response, oriented, at arrival to emergency department; Z88.5 Allergy status to narcotic agent; R47.01 Aphasia; M06.9 Rheumatoid arthritis, unspecified; E03.9 Hypothyroidism, unspecified; N40.1 Benign prostatic hyperplasia with lower urinary tract symptoms; R39.15 Urgency of urination
CPT/HCPCS: 36415; 36416; 70450; 70496; 70498; 70553; 80053; 80061; 80069; 81001; 82553; 84484; 85007; 85025; 85027; 85610; 85730; 93005; 93306; 94760; J1650; Q9967

== ENCOUNTER 2019-07-15 10:36 | Outpatient (CLI) | payer OTHER ==
--- NOTE | 2019-07-19 14:03 | CT ---
CT THORAX WITH CONTRAST: DATE: 07/15/2019 HISTORY: 63-year-old male with malignant adenocarcinoma right lung cancer diagnosed by thoracentesis. COMPARISON: None available. Dictation was postponed, pending arrival of prior outside CTs from [facility]. Dany Gallegos requested dictation and report today, date of dictation, 07/19/2019. Telephone discussion of findings with Dr. Gallegos just prior to this dictation. FINDINGS: Soft tissue density right hilar mass. Because of surrounding airspace opacities which could be atelec tasis or pneumonitis, and because of the irregular shape, measurements are imprecise: Approximately 6 x 3.5 x 8 cm. It extrinsically narrows the right lower lobe and right upper lobe bronchi and there branches. Surrounding airspace densities in the right lung. Some of this represents atelectasis. There is a 6 x 3.5 x 3.5 cm soft tissue density component in the anterior segment of the right upper lobe which probably represents malignant tumor material. The alternative would be postobstructive pneumonitis. Interstitial densities throughout much of the rest of the right lung. Possibilities include unilatera l pulmonary edema, infectious pneumonitis, and lymphangitic carcinomatosis. Moderately large multiloculated right pleural effusion. The largest loculation occupies approximately three quarters of the right posterior inferior hemithoracic cavity. It inferiorly displaces the right hemidiaphragm and liver. Extensive conglomeration of matted subcarinal lymph nodes and left mediastinal lymph nodes, all malig nant. Circumferential peritracheal mediastinal lymph nodes causing mild tracheal narrowing. No left pleural effusion. No cardiomegaly or pericardial effusion. Large number of metastatic lesions throughout the liver. No splenomegaly. Incomplete visualization of pathologic lymph node located between the body of the stomach and body of the pancreas, just anterior to the main portal vein. Osteolytic lesion involving the anterior portion of the right clavicle. A few scattered tiny sclerotic lesions in multiple thoracic vertebral bodies. IMPRESSION: 1) moderately large right hilar/perihilar primary lung cancer tumor. 2. Malignant extensive mediastinal lymphadenopathy that involves both right and left sides. 3. Large, multiloculated malignant right pleural effusion. 4. Numerous hepatic metastasis. 5. Malignant midline upper abdominal lymph node. 6. Skeletal metastatic disease. 7. Extensive airspace densities and interstitial densities throughout the noncollapsed portions of th e right lung. These could represent malignant tumor components (the anterior segment right upper lobe component is most suspicious for neoplastic component), pneumonia, and possibly lymphangitis car cinomatosa.
--- NOTE | 2019-07-19 14:27 | PET ---
Nuclear medicine FDG PET/CT: (Positron emission tomography and computed tomography) DATE: 07/15/2019 HISTORY: 63-year-old male with "malignant neoplasm of unspecified part of right bronchus or lung." Dictation of the study was postponed, pending arrival of prior CT from outside facility. This is being dictated on 07/19/[address], upon request from Dr. Gallegos. COMPARISON: none. TECHNIQUE: IV injection of F-18 fluorodeoxyglucose (FDG) dose: 11.2 mCi. PET scan and attenuation correction CT performed from skull base to proximal thighs. FINDINGS: SUV (standard uptake values) numbers given are maximum SUVs. QCLR used. Neck: 1.2 x 0.9 cm right level 5 cervical lymph node. SUV 9.6. Inferior to that, right paratracheal medial supraclavicular lymph node at cervical thoracic junction roughly 1 x 2 cm with SUV 8.5. Numerous other slightly enlarged right supraclavicular level 4 and 5B lymph nodes with typical SUV 4. 1. CHEST: For detailed description of findings within the thoracic cavity, see separate report of the chest CT of the same day. The very increased uptake of the right hilar, anterior segment right upper lobe, and extensive medias tinal, tumor material, are all contiguous, and difficult to separate from each other. Therefore, SUVs assigned to each specific area is somewhat arbitrary. Right hilar mass: SUV 3.1. Soft tissue density material anterior segment right upper lobe SUV 10.0. Infiltrate-like material abutting superior edge of large component of loculated right pleural effusio n SUV 9.3. Subcarinal malignant metastatic lymphadenopathy SUV 13.7. Lower left paratracheal lymphadenopathy abutting superior edge of proximal aspect of left mainstem br onchus SUV 8.9. Far left lateral mediastinal lymphadenopathy very close to left hilum SUV 7.5. Numerous metastatic lesions in left and right lobes of liver. One of the larger 1's near the hilum of the liver just to the right of the caudate lobe near junction between right and left lobes SUV 13.4. Mild right nephromegaly associated with mild right hydroureteronephrosis. Asymmetrically increased ac tivity throughout the right kidney with SUV 29.4. This could be due to obstructive nephropathy rather than neoplastic tumor involvement. Other possibility includes pyelonephritis. No evidence of renal, ureteral, or bladder calculus. Enlarged prostate gland. A 3 x 2 cm soft tissue density mass located between the body of the stomach, body of pancreas, and le ft lobe of liver, SUV 6.7. Numerous foci of increased uptake in the skeleton, mostly lumbar spine and thoracic spine, but also C 2 body and odontoid process of the cervical spine. Typical lesion is L1 vertebral body SUV 9.6. T11 vertebral body SUV 12.2. T10 vertebral body SUV 13.2 . Several left-sided hypermetabolic rib lesions. Lower sternal body lesion near xiphoid. Bilateral iliac lesions. One of them next to upper right SI j oint SUV 8.8. Additional skeletal metastases bilaterally in pelvis. IMPRESSION: 1) hypermetabolic moderately large right hilar and perihilar malignant neoplastic tumor material. 2) hypermetabolic mass at anterior segment right upper lobe could be the original primary malignant l adriana cancer. 3) extensive bilateral malignant mediastinal lymphadenopathy. 4) multiloculated large malignant right pleural effusion. 5) multiple hepatic metastases. 6) 3 cm hypermetabolic malignant upper abdominal lymph node. 7) widespread skeletal metastatic disease. 8) malignant right supraclavicular cervical lymphadenopathy. 9) right obstructive uropathy. Mild right hydroureteronephrosis.
== END 2019-07-15 10:37 | disposition home or self-care (01) ==
LOC: PET 10:36 → CT 10:37
PROVIDERS: ATTEND Internal Medicine Hematology & Oncology
DX: C34.91 Malignant neoplasm of unspecified part of right bronchus or lung (principal); J90 Pleural effusion, not elsewhere classified; R59.0 Localized enlarged lymph nodes; C78.7 Secondary malignant neoplasm of liver and intrahepatic bile duct; C79.51 Secondary malignant neoplasm of bone; N13.9 Obstructive and reflux uropathy, unspecified; N13.30 Unspecified hydronephrosis; R91.8 Other nonspecific abnormal finding of lung field
CPT/HCPCS: 71260; 78815; A9552

== ENCOUNTER 2019-07-21 03:48 | Inpatient (IN) | payer OTHER ==
[2019-07-21] MEDS ORDERED: Morphine 4 MG/ML VIAL ONE ×2 (04:22→06:42)
[2019-07-21] MEDS ORDERED: Ondansetron PF 4 MG/2 ML Vial ONE (04:22)
[2019-07-21 04:38] LABS: Hemoglobin 14.5 g/dL (14.0-18.0); Mean Corpuscular HGB CONC 33.4 g/dL (32.0-36.0); Mean Corpuscular Volume 95.9 fL (78.0-98.0); Mean Platelet Volume 8.5 fL (7.4-10.4); Platelet Count 149 thou/uL (130-400); RBC Distribution Width 11.9 % (11.5-14.5); Red Blood Cell (RBC) Count 4.53 mill/uL (4.70-6.10); White Blood Cell (WBC) Count 26.8 thou/uL (4.8-10.8)
[2019-07-21 04:53] LABS: ALT (SGPT) 17 U/L (8-55); AST (SGOT) 20 U/L (5-34); Albumin 3.8 g/dL (3.4-4.8); Alkaline Phosphatase 91 U/L (40-110); Anion Gap 20 mmol/L (10-20); BUN (Urea Nitrogen) 32 mg/dL (8.4-25.7); Band 1 % (5-11); Bilirubin, Total 0.6 mg/dL (0.2-1.2); CK (CPK) 55 U/L (30-200); Calc. Creatinine Clearance 0 mL/min (70-130); Calcium 9.8 mg/dL (7.8-10.44); Carbon Dioxide 20 mmol/L (23-31); Chloride 100 mmol/L (98-107); Eosinophils 14 % (0-10); Estimated GFR-MDRD 48; Globulin 3.7 g/dL (2.4-3.5); Glucose 130 mg/dL (80-115); Lymphocytes 11 % (21-51); MDiff Complete? YES; Monocytes 1 % (0-10); Neutrophil 73 % (42-75); Platelet Morphology Comment Appears Adequate; Potassium 4.9 mmol/L (3.5-5.1); Protein, Total 7.5 g/dL (5.8-8.1); Sodium 135 mmol/L (136-145)
[2019-07-21] MEDS ORDERED: Cefepime 2 GM VIAL ONE (05:12)
[2019-07-21 05:15] LABS: CKMB 1.9 ng/mL (0-6.6)
--- NOTE | 2019-07-21 07:42 | RAD ---
EXAM: Single view of the chest HISTORY: Fall with chest pain COMPARISON: 04/19/2014; CT chest 07/15/2019 FINDINGS: Single view of the chest shows a normal sized cardiomediastinal silhouette. There is a larg e right pleural effusion with adjacent atelectasis. There is minimal aeration of the right superior thorax. The bones are unremarkable. IMPRESSION: Large right pleural effusion with adjacent atelectasis
[2019-07-21 08:38] LABS: Lactic Acid 2.5 mmol/L (0.5-2.2)
--- NOTE | 2019-07-21 08:38 | CT ---
CT OF THE BRAIN WITHOUT CONTRAST: COMPARISON: 07/10/2019. MRI of the brain 07/11/2019. HISTORY: Trip and fall with head trauma. TECHNIQUE: Multiple contiguous axial images were obtained in a CT of the brain without contrast. Sagittal and c oronal reformats were performed. FINDINGS: There is an area of hypodensity scattered with central hyperdensity in the left parietal lobe. This is stable compared to the prior examination and represents the area of cytotoxic edema and metastatic disease on prior examinations. There is no evidence of hydrocephalus, intracranial hemorrhage, or e xtraaxial fluid collection. The calvarium and overlying soft tissues are unremarkable. The visualized paranasal sinuses and mast oid air cells are well aerated. IMPRESSION: 1. No evidence of acute intracranial abnormality. 2. Evolving process in the left parietal lobe is stable compared to the prior exam. POS: [facility]
--- NOTE | 2019-07-21 08:41 | CT ---
CT OF THE CERVICAL SPINE WITHOUT CONTRAST: HISTORY: Fall with head trauma and neck pain. TECHNIQUE: Multiple contiguous axial images were obtained in a CT of the cervical spine without contrast. Sagit taz and coronal reformats were performed. FINDINGS: The vertebral bodies and intervertebral disks demonstrate normal height and alignment without fractur e or subluxation. Erosive degenerative changes are seen surrounding the odontoid process with a mode rate amount of panus formation surrounding the odontoid process. There is no prevertebral soft tissu e swelling. The posterior facets are well aligned. Normal alignment of the skull base with the cervical spine is seen. IMPRESSION: 1. No evidence of acute osseous abnormality of the cervical spine. 2. Inflammatory process surrounding the odontoid process. POS: [facility]
[2019-07-21] MEDS ORDERED: Sodium Chloride 0.9% 500 ML IV SCH (09:45)
[2019-07-21] MEDS ORDERED: Ondansetron ODT 4 MG TAB PO PRN (09:50)
[2019-07-21] MEDS ORDERED: Ondansetron PF 4 MG/2 ML Vial IVP PRN (09:50)
[2019-07-21] MEDS ORDERED: Guaifenesin DM 100-10/5 ML UDCUP PO PRN (09:50)
[2019-07-21] MEDS ORDERED: Acetaminophen 325 MG TAB PO PRN (09:50)
[2019-07-21] MEDS ORDERED: Acetaminophen 650 MG Suppository PR PRN (09:50)
[2019-07-21] MEDS ORDERED: Senokot S 8.6-50 MG TAB PO PRN (09:50)
[2019-07-21] MEDS ORDERED: HYDROcodone/Acetaminophen 5/325 mg Tablet PO PRN (09:50)
[2019-07-21] MEDS: Sodium Chloride 0.9% 1,000 ML IV SCH ×2 (10:24→17:09)
--- NOTE | 2019-07-21 11:32 | HP ---
PRIMARY CARE PHYSICIAN: Dr. Silvio Coreas. CHIEF COMPLAINT: Fall. HISTORY OF PRESENT ILLNESS: All history taken from the chart and confirmed a little bit with the patient, but the patient has dysarthria and problems with word finding from previous stroke, make it difficult for him to communicate much. Family not at the bedside currently. The patient presented to the emergency room after a tripping and a mechanical fall. No specific new complaints. He does have back pain, which he has been having since his diagnosis of metastatic lung cancer. The patient was recently hospitalized about 10 days ago for a new ischemic stroke resulting in slurred speech, right facial droop and left upper extremity weakness. He also had a recent diagnosis of lung cancer with malignant effusion, adenocarcinoma. The patient has since quit smoking. He saw Dr. Gallegos in the outpatient earlier in the week, had a PET scan which showed metastatic nodules all over including the back and the neck as well, one around the odontoid process, which is the likely source of his back pain. In the emergency room, the patient was found to be tachycardic, pulse in the 120s. He was also found to have a significant leukocytosis up to 26,000 from 18,000 on his last admission and a lactic acidosis of 3.2, also had an indeterminate troponin of 0.129, which is actually improved from the NSTEMI levels that he had during his previous stroke. The patient's creatinine also worsened slightly up to 1.75 from 1.54. The patient was given just a 500 mL fluid bolus in the emergency room. His lactic acid came down to 2.5. He was also loaded on Levaquin, cefepime and vancomycin for likely postobstructive pneumonia. Reviewing his CAT scan and PET scan from last week, he did have the evidence of inflammation and likely postobstructive pneumonia. At that time he was tried on doxycycline, amoxicillin by Dr. Gallegos in the outpatient. However, he has progressed and so he needs admission and IV antibiotics. REVIEW OF SYSTEMS: Unable to obtain secondary to patient's recent stroke and dysarthria and trouble with word finding. PAST MEDICAL HISTORY: 1. Adenocarcinoma of the lung with metastases. 2. Hypertension. 3. Rheumatoid arthritis. 4. Benign prostatic hyperplasia. 5. Recent stroke with residual facial droop, dysarthria, and left-sided body weakness. PAST SURGICAL HISTORY: 1. Back surgery. 2. Thyroidectomy. 3. Left ankle surgery. 4. Left wrist surgery. 5. Thoracentesis for malignant effusion. SOCIAL HISTORY: The patient used to smoke half pack per day for several years, stopped at the beginning of last month. He denies alcohol or illicit drug use. He lives with his Fifi Manley and she is his medical decision maker. He is a full code. ALLERGIES: HE HAS AN ADVERSE REACTION TO CODEINE. CURRENT MEDICATIONS: 1. Aspirin 325 mg daily. 2. Atorvastatin 40 mg at night. 3. Folic acid 1 mg daily. 4. Levothyroxine 200 mcg daily. 5. Tamsulosin 0.4 mg daily. 6. Amoxicillin. 7. Doxycycline. PHYSICAL EXAMINATION: VITAL SIGNS: Blood pressure 121/85, pulse 122, respirations 16, O2 saturation 92% on room air, temperature 97.7. GENERAL: This is a well-developed, overweight male in no acute distress. HEENT: Pupils are equal, round, and reactive to light. Oropharynx clear without lesions, erythema, or exudate. NECK: Supple. No lymphadenopathy. No thyroid nodules or enlargement. No neck tenderness. HEART: Regular rhythm. Tachycardic. LUNGS: Some diminished breath sounds on the right side, but no wheezing, rales or rhonchi. No increased work of breathing currently. ABDOMEN: Soft, nontender to palpation. Normoactive bowel sounds. No hepatosplenomegaly or masses. EXTREMITIES: No clubbing, cyanosis, or edema. SKIN: No rashes or lesions noted. 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 He has some neglect to the left side as well. He has some mild right facial droop and he has some significant dysarthria and word-finding difficulties. PSYCHIATRIC: Alert and unable to test his orientation well. LABORATORY DATA: CBC: White blood cell count 26,000 with 1% bands. The rest of CBC was okay. Coagulation profile negative. CMP notable for sodium of 135, carbon dioxide of 20, BUN of 32, creatinine of 1.75, glucose of 130. The rest was normal. Troponin was indeterminate at 0.129, down from over 1 last month. Brain natriuretic peptide is negative. Lactic acid was 3.2 down to 2.5. Urinalysis does show greater than 50 red blood cells, 21-50 white blood cells, but no bacteria. Blood culture pending. We will go ahead and do a urine culture as well. IMAGING: CT of the cervical spine shows no evidence of fracture. He does have a lesion of the odontoid process consistent with his PET scan results of metastases there. CT of the brain unchanged. No acute intracranial abnormality. There is the evolving process in left parietal lobe, stable from prior exam. Chest x-ray: I did review the chest x-ray in the emergency room along with the radiologist's report. It does show a persistent large right pleural effusion with adjacent atelectasis. ASSESSMENT: 1. Post obstructive pneumonia, now with sepsis. We will bolus the patient fluids to get his heart rate down and we will continue cefepime, Levaquin and vancomycin. We will allow the pharmacy to dose the vancomycin. I have consulted Dr. Fontana to assist in care with this patient. 2. Metastatic adenocarcinoma. I did discuss the case with Joi Amor who works with Dr. Gallegos. She stated that the patient is a candidate for immunotherapy once he gets out of the hospital from this infection, but there is nothing acute they need to do during the hospitalization. 3. Lactic acidosis, improving. 4. Lxdlc-zh-cfjungs renal failure. We will monitor closely with fluid resuscitation. 5. Malignant effusion, chronic. 6. Deep venous thrombosis prophylaxis. Put the patient on Lovenox 40 mg subcutaneously. 7. Gastrointestinal prophylaxis. Put the patient on Pepcid twice a day. 8. Recent stroke. We will resume patient's aspirin and atorvastatin. 9. Hypothyroidism. Resume patient's levothyroxine. 10. Benign prostatic hyperplasia. We will resume patient's tamsulosin. CODE STATUS: The patient is a full code. Should he be incapacitated, his Fifi Manley is his medical decision maker. Job ID: [id number] [facility]
[2019-07-21] MEDS: Cefepime 2 GM in Sodium Chloride 0.9% 100 ML IVPB SCH (17:11)
[2019-07-21 20:44] LABS: Pleural Fluid, Glucose Less than 20 mg/dL; Pleural Fluid, LDH 2184 U/L (Not Available); Pleural Fluid, Protein 7.5 g/dL; RBC Count-Automated (BF) Greater than 890000 /cumm; WBC/Nucleated-Auto (BF) 11973 uL
[2019-07-21 20:46] LABS: BF Color Red; Body Fluid Source Pleural Fluid; Clarity Cloudy/Turbid (Clear); Tube # 3
[2019-07-21 20:58] LABS: BF Segmented Neutrophils 63 %; Cell Count Non Hematic 25 %; Eosinophils 3 %; Lymphocytes 9 %
[2019-07-21] MEDS ORDERED: Vancomycin HCl 1 GM in Premix Bag 1 BAG IVPB SCH (21:00)
[2019-07-21] MEDS: Atorvastatin Calcium 40 MG TAB PO SCH (21:38)
[2019-07-21] MEDS: HYDROcodone/Acetaminophen 5/325 mg Tablet PO PRN (21:38)
[2019-07-21] MEDS: Famotidine 20 MG TAB PO SCH (21:38)
--- NOTE | 2019-07-22 02:11 | OP ---
DATE OF PROCEDURE: 07/21/2019 SERVICE: Pulmonary Medicine. PROCEDURE: Right-sided thoracentesis with ultrasound guidance. CONSENT: The risks and benefits of the procedure were discussed with the patient prior to initiating the procedure. All questions were answered and alternative options explained. MEDICATIONS USED: Lidocaine 1% without epinephrine, 10 mL. PREOPERATIVE DIAGNOSES: 1. Shortness of breath. 2. Healthcare-associated pneumonia. 3. Malignant pleural effusion. POSTPROCEDURE DIAGNOSES: 1. Shortness of breath. 2. Healthcare-associated pneumonia. 3. Malignant pleural effusion. DESCRIPTION OF PROCEDURE: Time-out was performed identifying the correct procedure and patient with name and date of . The procedure site was marked. Vital sign monitoring was accomplished by noninvasive hemodynamic monitoring, pulse oximetry, and telemetry. In the seated position, the right posterior hemothorax was examined using an ultrasound probe. The diaphragm and pleural fluid were easily identified. There was a very large pocket of fluid. The skin was prepped and draped in sterile fashion and anesthetized with 1% lidocaine without epinephrine. A finder needle was inserted in the pleural space with return of frankly bloody pleural fluid. A pleural drainage catheter was inserted in the same location. A total quantity of 200 mL was withdrawn by syringe pump technique. A sample was sent for analysis. Evacuation of fluid was stopped because of the characteristics of the fluid. At the end of the procedure, estimated pleural pressures, measured by manometry, was +4 cm of pleural fluid. The intact catheter was withdrawn on exhalation and a sterile dressing was applied. The patient had stable vitals throughout the entire procedure. ESTIMATED BLOOD LOSS: Minimal. COMPLICATIONS: None immediately postop. Job ID: [id number]
--- NOTE | 2019-07-22 02:32 | CON ---
DATE OF CONSULTATION: 07/21/2019 SERVICE: Pulmonary Medicine. REASON FOR CONSULT: Abnormal CT. HISTORY OF PRESENT ILLNESS: The patient is a 63-year-old male with past medical history significant for widely metastatic adenocarcinoma of the lung. He has a very high expression to Keytruda. That being said, he was in his usual state of health, when he sustained a fall. Because he had an elevated white blood cell count and tachycardia, he was admitted to the hospital. He has been coughing up some white phlegm. Nothing with color to it. There has been no reports of fevers or chills. He had not had any night sweats. Otherwise, there has been no more change to his condition. He was initiated on antibiotics for possible postobstructive process. Because of the fall, he underwent a chest x-ray, brain CT, and a C-spine CT. This whole diagnostic course has been complicated by recent stroke that has left him slightly debilitated. PAST MEDICAL HISTORY: 1. Adenocarcinoma of the lung, widely metastatic. 2. Malignant pleural effusion. 3. Hypertension. 4. Rheumatoid arthritis. 5. BPH. 6. History of CVA with debility on the left. PAST SURGICAL HISTORY: 1. Back surgery. 2. Thyroidectomy. 3. Left ankle surgery. 4. Left wrist surgery. 5. Thoracentesis. SOCIAL HISTORY: Negative for alcohol, tobacco, or illicit drug use currently. He has greater than [id number] history of smoking. FAMILY HISTORY: Noncontributory. ALLERGIES: CODEINE. MEDICATIONS: List of his inpatient medications was reviewed. No specific updates were made at this time. REVIEW OF SYSTEMS: General, head, ears, eyes, nose, throat, cardiovascular, respiratory, GI, , musculoskeletal, neurologic, and skin is negative except as mentioned in the HPI. PHYSICAL EXAMINATION: VITAL SIGNS: Afebrile, pulse 125, blood pressure 135/88, respirations 23, and saturation 95%, currently on room air. GENERAL: The patient is awake and alert, in no apparent distress. LUNGS: Reduced air entry on the right. No prolonged expiratory phase or wheezing is appreciated on the left. HEART: Tachycardic. Irregular. ABDOMEN: Soft, nontender, and nondistended. Bowel sounds are positive. MUSCULOSKELETAL: No cyanosis or clubbing. There is no pitting in the bilateral lower extremities. NEUROLOGIC: Grossly nonfocal. LABORATORY DATA: WBC 26.8, hemoglobin 14.5, and platelets 149,000. Creatinine 1.75. Basic metabolic profile is otherwise unremarkable. Liver function studies are unremarkable. Troponin 0.129, which is actually downtrending compared to prior hospital stay. BNP is unremarkable, CK 1.9. Lactate 2.5, which is downtrending. Urinalysis has minimal pyuria, but extensive red blood cells. Bacteria were not identified, nitrites were negative. IMAGING DATA: 1. Recent CT of the chest demonstrates extensive nodularity throughout the right lung, large pleural effusion. This has a loculated appearance to it. 2. Chest x-ray demonstrates radames-opacification in the right lung field. It has actually worsened, when I compared it to the CT scan done on the . 3. C-spine CT demonstrates no osseous abnormality or subluxation, though there is hyperintensity at the odontoid process, possibly consistent with his rheumatologic disease. 4. CT of the brain demonstrates evolving parietal lesion. That being said, there is nothing acute present. ASSESSMENT: 1. Severe sepsis. 2. Healthcare-associated pneumonia with likely postobstructive process. 3. Malignant pleural effusion. DISCUSSION AND PLAN: I will repeat a thoracentesis for therapeutic purposes. It is also going to give us the opportunity to re-analyze his fluid to make certain there is no infection there. If the fluid comes back, a PleurX catheter could be considered if he had a care provider that was capable of doing that for him. Because of this high expression of PD-L1, he may get a fairly robust response to immunotherapy. Hopefully, we will be able to tune him up to the point where we can get him there. Large doses of steroids will try to be avoided to prevent him from failing to respond to the immunotherapy. 70 minutes have been devoted to this patient in various activities. I personally reviewed all imaging studies and laboratory data noted within this document. For fifty percent of this time, I was interacting with the patient at the bedside or coordinating care with the care team. For the remainder of the time I was immediately available to the patient in the hospital unit. Job ID: [id number] MTDD
[2019-07-22 04:49] VITALS: BMI 34.3
[2019-07-22 05:17] LABS: Anion Gap 20 mmol/L (10-20); BUN (Urea Nitrogen) 31 mg/dL (8.4-25.7); Calc. Creatinine Clearance 96 mL/min (70-130); Calcium 9.4 mg/dL (7.8-10.44); Carbon Dioxide 15 mmol/L (23-31); Chloride 104 mmol/L (98-107); Estimated GFR-MDRD 59; Glucose 112 mg/dL (80-115); Potassium 4.9 mmol/L (3.5-5.1); Sodium 134 mmol/L (136-145)
[2019-07-22] MEDS: Levothyroxine Sodium 100 MCG TAB PO SCH (06:06)
--- NOTE | 2019-07-22 06:13 | PRG ---
DATE OF SERVICE: 07/22/2019 SERVICE: Pulmonary Medicine. INTERVAL HISTORY: The patient is doing fine from respiratory standpoint. Overnight, his biggest complaint is that there was multiple attempts made to make ER getting an IV. Ultimately, all attempts were abandoned. We are going to work on getting him a midline today if possible. The and the patient are both fairly upset about this. At this point, no medication is going in. He denies any fevers or chills. He does not have any significant shortness of breath or chest discomfort. He remains a little bit tachycardic but otherwise, he is doing quite well. PHYSICAL EXAMINATION: VITAL SIGNS: Afebrile, pulse 121, blood pressure 139/90, respirations 16, saturation 95%, currently on room air. GENERAL: The patient is awake and alert, in no apparent distress. LUNGS: Decent air entry on the left. The right has no air entry posteriorly. HEART: Normal rate. Regular. ABDOMEN: Soft, nontender, nondistended. Bowel sounds are positive. MUSCULOSKELETAL: No cyanosis or clubbing. No pitting in the bilateral lower extremities. NEUROLOGIC: Grossly nonfocal. LABORATORY DATA: WBC 26.8, hemoglobin 14.5, platelets 140,000 on presentation. Creatinine 1.46 and gently downtrending, BUN 31. Bicarb 15, anion gap 20. Basic metabolic profile is otherwise unremarkable. Pleural fluid shows an LDH of 2184, elevated total protein, and a glucose of less than 20. The predominant cell type is neutrophil. Hemoglobin is 8.7 and the hematocrit is 24. Pleural fluid culture is negative to date. No organisms are seen. ASSESSMENT: 1. Severe sepsis. 2. Healthcare-associated pneumonia, possible. 3. Malignant pleural effusion with current superimposed hemothorax. DISCUSSION AND PLAN: I am interested in seeing the results of this morning CBC. If they are stable, I am inclined to wait for culture results to make certain this space is sterile. If this is a hemothorax and his hemoglobin is decreasing, thoracic surgery consultation will be placed today. If this fluid is sterile, we will have them arrange for a PleurX in a couple of days. CBC from this morning are currently pending. Pulmonary/Critical Care will continue to follow along. He will need to remain in the hospital for at least a couple of days. Job ID: [id number]
--- NOTE | 2019-07-22 07:43 | PDOC.HOSPP ---
- Subjective Encounter Date: 07/22/19 Encounter Time: 10:00 Subjective: Patient with trouble getting IV last night, just got midline in and starting IV fluids back up and IV abx. Patient still tachycardic. - Objective Vital Signs & Weight: Vital Signs (12 hours) Temp Pulse Resp BP Pulse Ox 07/22/19 04:00 97.7 F 121 H 16 139/90 96 07/21/19 20:00 98.1 F 125 H 16 118/69 92 L Weight Weight 282 lb 3.067 oz I&O: 07/21/19 07/22/19 07/23/19 06:59 06:59 06:59 Intake Total 1590 Output Total 550 Balance 1040 Result Diagrams: 07/22/19 12:34 07/22/19 04:37 Hospitalist ROS - Review of Systems Constitutional: denies: fever, chills Respiratory: denies: cough, shortness of breath Cardiovascular: denies: chest pain, palpitations Gastrointestinal: denies: nausea, vomiting, abdominal pain Neurological: reports: change in speech - Medication Medications: Active Medications Generic Name Dose Route Start Last Admin Trade Name Freq PRN Reason Stop Dose Admin Hydrocodone Bitart/Acetaminophen 2 tab 07/21/19 09:50 07/21/19 21:38 [place] 5/325 PO 2 tab Q4H PRN Administration Severe Pain (7-10) Atorvastatin Calcium 40 mg 07/21/19 21:00 07/21/19 21:38 Lipitor PO 40 mg HS MICHAEL Administration Famotidine 20 mg 07/21/19 21:00 07/21/19 21:38 Pepcid PO 20 mg Q24HR MICHAEL Administration Sodium Chloride 1,000 mls @ 100 mls/hr 07/21/19 09:45 07/21/19 17:09 Normal Saline 0.9% IV 1,000 mls .Q10H MICHAEL Administration Cefepime HCl 2 gm/ Sodium 100 mls @ 200 mls/hr 07/21/19 17:00 07/21/19 17:11 Chloride IVPB 100 mls 0500,1700 MICHAEL Administration Vancomycin HCl 2 gm/ Sodium 500 mls @ 250 mls/hr 07/21/19 15:00 07/21/19 17: 09 Chloride IVPB 500 mls 1500 MICHAEL Administration Levothyroxine Sodium 200 mcg 07/22/19 06:00 07/22/19 06:06 Synthroid PO 200 mcg 0600 MICHAEL Administration - Exam General Appearance: NAD, awake alert Eye: anicteric sclera ENT: moist mucosa Heart: no murmur, no gallops, no rubs. negative: RRR (tachycardic, regular) Respiratory: CTAB, no wheezes, no rales Gastrointestinal: soft, non-tender, non-distended, normal bowel sounds Neurological - other findings: right facial droop, left hemiplegia Psychiatric: normal affect, normal behavior Psychiatric - other findings: unable to test orientation due to dysarthria Hosp A/P (1) Sepsis Code(s): A41.9 - SEPSIS, UNSPECIFIED ORGANISM Status: Acute (2) Pneumonia Code(s): J18.9 - PNEUMONIA, UNSPECIFIED ORGANISM Status: Acute (3) Pleural effusion, malignant Code(s): J91.0 - MALIGNANT PLEURAL EFFUSION Status: Acute (4) Lung cancer, primary, with metastasis from lung to other site Code(s): C34.90 - MALIGNANT NEOPLASM OF UNSP PART OF UNSP BRONCHUS OR LUNG Status: Acute Qualifiers: Laterality: right Qualified Code(s): C34.91 - Malignant neoplasm of unspecified part of right bronchus or lung (5) Acute renal failure superimposed on stage 2 chronic kidney disease Code(s): N17.9 - ACUTE KIDNEY FAILURE, UNSPECIFIED; N18.2 - CHRONIC KIDNEY DISEASE, STAGE 2 (MILD) Status: Acute (6) History of stroke Code(s): Z86.73 - PRSNL HX OF TIA (TIA), AND CEREB INFRC W/O RESID DEFICITS Status: Chronic (7) BPH (benign prostatic hyperplasia) Code(s): N40.0 - BENIGN PROSTATIC HYPERPLASIA WITHOUT LOWER URINRY TRACT SYMP Status: Chronic (8) 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 Patient became frustrated with multiple attempts at IV and was refusing further attempts. Fluid and abx just restarted after midline. Renal failure improving, but still moderately tachycardic, sinus tachy Appreciate Dr. Fontana's assistance, thoracentesis with bloody fluid, culture pending, need repeat CBC to make sure not hemorrhaging in chest cavity, if drop below [address] surgery consult per Dr. Fontana. Plan for immunotherapy after discharge DVT prophylaxis: Lovenox 11:00- patient became agitated and picking at the air after starting Levaquin and Cefepime. says he had AMS with same abx last night. Possibly Levaquin reaction. Discussed with Dr. Fontana and can d/c Levaquin, cont Cefepime and Vanc. If H/H ok on recheck, then check again this evening and in AM
[2019-07-22] MEDS ORDERED: Aspirin 325 mg Enteric Coated Tablet PO SCH (09:00)
[2019-07-22] MEDS ORDERED: Enoxaparin Sodium 40 MG/0.4 ML SYRINGE SC SCH (09:00)
[2019-07-22] MEDS: Cefepime 2 GM in Sodium Chloride 0.9% 100 ML IVPB SCH ×2 (09:38→16:22)
[2019-07-22] MEDS: Folic Acid 1 MG TAB PO SCH (09:38)
[2019-07-22] MEDS: Tamsulosin HCl 0.4 MG CAP PO SCH (09:38)
[2019-07-22] MEDS ORDERED: Chloraseptic Spray 180 ml Bottle PO PRN (12:22)
[2019-07-22 13:02] LABS: Band 16 % (5-11); Eosinophils 11 % (0-10); Hemoglobin 12.8 g/dL (14.0-18.0); Lymphocytes 9 % (21-51); MDiff Complete? YES; Mean Corpuscular HGB CONC 32.2 g/dL (32.0-36.0); Mean Corpuscular Hemoglobin 30.5 pg (27.0-31.0); Mean Corpuscular Volume 94.8 fL (78.0-98.0); Mean Platelet Volume 9.2 fL (7.4-10.4); Monocytes 4 % (0-10); Neutrophil 60 % (42-75); Platelet Count 113 thou/uL (130-400); Platelet Morphology Comment Appears Decreased; RBC Distribution Width 11.9 % (11.5-14.5); RBC Morphology Normal; Red Blood Cell (RBC) Count 4.19 mill/uL (4.70-6.10); White Blood Cell (WBC) Count 28.1 thou/uL (4.8-10.8)
[2019-07-22] MEDS: Sodium Chloride 0.9% 1,000 ML IV SCH (14:35)
--- NOTE | 2019-07-22 20:29 | CT ---
EXAM: CT Brain WO Con PROVIDED CLINICAL HISTORY: Stroke symptoms COMPARISON: CT 07/21/2019, MRI 07/11/2019 FINDINGS: The ventricular system is unchanged in size and morphology. There is persistent hypodensity in the po sterior left parietal region with some central hyperdensity, not significantly change with respect to the prior CT examination. This is in an area of restricted diffusion on prior MRI suggesting evolv ing infarction. The associated hyperdensity could reflect petechial hemorrhage. There is no evidence for extra-axial hemorrhage or shift of midline structures. The basilar cisterns appear paten t. The extracranial soft tissues and osseous structures demonstrate no acute abnormality. IMPRESSION: Stable CT of the brain with respect to 07/21/2019. If further evaluation is clinically desired, conside r MRI brain.
[2019-07-22] MEDS: Famotidine 20 MG TAB PO SCH (20:52)
[2019-07-22] MEDS: Atorvastatin Calcium 40 MG TAB PO SCH (20:52)
[2019-07-22] MEDS: HYDROcodone/Acetaminophen 5/325 mg Tablet PO PRN (20:53)
[2019-07-22 20:57] LABS: Hemoglobin 12.2 g/dL (14.0-18.0)
[2019-07-22 23:40] LABS: Actual Bicarbonate (HCO3a) 18.2 mEq/L (22-28); Base Excess (BEa) -6.8 mEq/L (-2.0 to +3.0); Calcium, Ionized 1.29 mmol/L (1.12-1.30); Carboxyhemoglobin (COHb) 0.5 gm% (0.0-3.0); Hemoglobin (Hb) 12.8 g/dL (14.0-18.0); O2 Tension (PaO2) 75.1 mmHg (> 80.0); pH, Arterial 7.33 (7.35-7.45)
[2019-07-22] MEDS ORDERED: Ipratropium Bromide 2.5 ml Neb NEB SCH (23:45)
--- NOTE | 2019-07-22 23:52 | RAD ---
EXAM: XR Chest 1 View Portable PROVIDED CLINICAL HISTORY: Tachypnea COMPARISON: 07/21/2019 FINDINGS: Persistent opacification of the majority of the right hemithorax, similar to prior. Left lung appears grossly clear. No evidence for pneumothorax. IMPRESSION: Stable radiographic appearance of the chest.
[2019-07-23 00:02] LABS: Band 14 % (5-11); Eosinophils 9 % (0-10); Hemoglobin 12.3 g/dL (14.0-18.0); Lymphocytes 8 % (21-51); MDiff Complete? YES; Mean Corpuscular HGB CONC 33.4 g/dL (32.0-36.0); Mean Corpuscular Hemoglobin 31.7 pg (27.0-31.0); Mean Corpuscular Volume 94.9 fL (78.0-98.0); Monocytes 2 % (0-10); Neutrophil 67 % (42-75); Platelet Count 116 thou/uL (130-400); RBC Distribution Width 11.9 % (11.5-14.5); Red Blood Cell (RBC) Count 3.89 mill/uL (4.70-6.10); White Blood Cell (WBC) Count 28.7 thou/uL (4.8-10.8)
--- NOTE | 2019-07-23 00:02 | PDOC.EVN ---
Event Note - Event Note Event Note: code ama called, pt was tachypnea and worsening mental status. I spoke with pt 's family who has been in the room since 11 am who states that pt was trying to use few words to communicate. however she states that he has been trying to get out of bed and has been breathing fast all day. His abg indicated 7.33/35/75 on 3L of oxygen. His cxr has white out of right lung. He did have thoracentesis today and 200ml was removed. On exam he is awake and follows command. He is drooling. He has exp wheezing noted all over. will start pt on steroids, ipratropium and transfer him to [facility]. I have updated pt's family. Bipap as needed. His MRI brain in the past month indicated stroke and metastatic lesion. He had a ct brain tonight no acute problems noted. Pt may need pleurx cath his effusion is most likely malignant.
[2019-07-23 00:04] LABS: Lactic Acid 3.2 mmol/L (0.5-2.2)
[2019-07-23 00:06] LABS: Anion Gap 16 mmol/L (10-20); BUN (Urea Nitrogen) 32 mg/dL (8.4-25.7); Calc. Creatinine Clearance 94 mL/min (70-130); Calcium 9.4 mg/dL (7.8-10.44); Carbon Dioxide 21 mmol/L (23-31); Chloride 105 mmol/L (98-107); Estimated GFR-MDRD 58; Glucose 122 mg/dL (80-115); Magnesium 2.1 mg/dL (1.6-2.6); Potassium 4.6 mmol/L (3.5-5.1); Sodium 137 mmol/L (136-145)
[2019-07-23] MEDS ORDERED: methylPREDNISolone Sod Succ/PF 125 MG/2 ML VIAL IVP SCH (00:15)
[2019-07-23 00:58] LABS: CKMB 1.4 ng/mL (0-6.6)
[2019-07-23] MEDS: Ipratropium Bromide 2.5 ml Neb NEB SCH ×6 (02:27→22:03)
[2019-07-23] MEDS: metroNIDAZOLE 500 MG in Premix Bag 1 BAG IVPB SCH ×3 (02:41→18:15)
[2019-07-23] MEDS: Cefepime 2 GM in Sodium Chloride 0.9% 100 ML IVPB SCH ×2 (04:40→17:18)
[2019-07-23 05:47] LABS: Anion Gap 14 mmol/L (10-20); BUN (Urea Nitrogen) 34 mg/dL (8.4-25.7); Calc. Creatinine Clearance 97 mL/min (70-130); Calcium 9.6 mg/dL (7.8-10.44); Carbon Dioxide 23 mmol/L (23-31); Chloride 106 mmol/L (98-107); Estimated GFR-MDRD 61; Glucose 140 mg/dL (80-115); Potassium 4.8 mmol/L (3.5-5.1); Sodium 138 mmol/L (136-145)
[2019-07-23] MEDS: Levothyroxine Sodium 100 MCG TAB PO SCH (06:12)
[2019-07-23 06:21] LABS: Hemoglobin 11.7 g/dL (14.0-18.0); Mean Corpuscular HGB CONC 31.8 g/dL (32.0-36.0); Mean Corpuscular Volume 94.4 fL (78.0-98.0); Mean Platelet Volume 9.4 fL (7.4-10.4); Platelet Count 104 thou/uL (130-400); RBC Distribution Width 11.8 % (11.5-14.5); Red Blood Cell (RBC) Count 3.88 mill/uL (4.70-6.10); White Blood Cell (WBC) Count 25.9 thou/uL (4.8-10.8)
[2019-07-23 06:56] LABS: Band 21 % (5-11); Eosinophils 7 % (0-10); Lymphocytes 6 % (21-51); MDiff Complete? YES; Neutrophil 66 % (42-75); Platelet Morphology Comment Appears Decreased
[2019-07-23] MEDS ORDERED: Albuterol Sulfate 1.25 MG/3 ML NEB NEB PRN (08:05)
--- NOTE | 2019-07-23 08:09 | PDOC.HOSPP ---
- Subjective Encounter Date: 07/23/19 (f/u metastatic disease) Encounter Time: 08:07 Subjective: Overnight pt with AMS and increased work of breathing - started on steroids, was in restraints overnight, has been on antibiotics. This morning is awake, cooperative. - Objective Vital Signs & Weight: Vital Signs (12 hours) Temp Pulse Pulse Resp Resp BP Pulse Ox 07/23/19 07:47 98 07/23/19 07:46 100 23 H 98 07/23/19 07:09 97.4 F L 07/23/19 03:36 97.8 F 07/23/19 02:27 106 H 07/23/19 00:47 139 H 07/22/19 23:54 100 07/22/19 23:23 130 H 32 H 170/88 H Pulse Ox 07/23/19 07:47 07/23/19 07:46 07/23/19 07:09 07/23/19 03:36 07/23/19 02:27 07/23/19 00:47 07/22/19 23:54 07/22/19 23:23 95 Weight Weight 275 lb 12.772 oz Most Recent Monitor Data Heart Rate from ECG 100 NIBP 123/82 NIBP BP-Mean 95 Respiration from ECG 25 SpO2 95 I&O: 07/22/19 07/23/19 07/24/19 06:59 06:59 06:59 Intake Total 1590 1841 Output Total 550 1300 Balance 1040 541 Result Diagrams: 07/23/19 14:57 07/23/19 07:55 Additional Labs: Accuchecks 07/22/19 07/22/19 23:16 16:05 POC Glucose 127 H 124 H EKG Reviewed by me: Yes (tele - sinus 100's) Hospitalist ROS - Medication Medications: Active Medications Generic Name Dose Route Start Last Admin Trade Name Freq PRN Reason Stop Dose Admin Hydrocodone Bitart/Acetaminophen 2 tab 07/21/19 09:50 07/22/19 20:53 [place] 5/325 PO 2 tab Q4H PRN Administration Severe Pain (7-10) Atorvastatin Calcium 40 mg 07/21/19 21:00 07/22/19 20:52 Lipitor PO 40 mg HS MICHAEL Administration Folic Acid 1 mg 07/22/19 09:00 07/22/19 09:38 Folvite PO 1 mg DAILY MICHAEL Administration Sodium Chloride 1,000 mls @ 100 mls/hr 07/21/19 09:45 07/22/19 14:35 Normal Saline 0.9% IV 1,000 mls .Q10H MICHAEL Administration Cefepime HCl 2 gm/ Sodium 100 mls @ 200 mls/hr 07/21/19 17:00 07/23/19 04:40 Chloride IVPB 100 mls 0500,1700 MICHAEL Administration Vancomycin HCl 2 gm/ Sodium 500 mls @ 250 mls/hr 07/21/19 15:00 07/22/19 14: 35 Chloride IVPB 500 mls 1500 MICHAEL Administration Metronidazole 500 mg/ Device 100 mls @ 100 mls/hr 07/23/19 02:00 07/23/19 02: 41 IVPB 100 mls 0200,1000,1800 MICHAEL Administration Ipratropium [place] 2.5 ml 07/23/19 02:30 07/23/19 07:46 Atrovent NEB 2.5 ml [id number] MICHAEL Administration Levothyroxine Sodium 200 mcg 07/22/19 06:00 07/23/19 06:12 Synthroid PO Not Given 0600 MICHAEL Tamsulosin HCl 0.4 mg 07/22/19 09:00 07/22/19 09:38 Flomax PO 0.4 mg DAILY MICHAEL Administration - Exam General Appearance: NAD General - other findings: eyes open, follows commands Heart: RRR, no murmur Respiratory - other findings: absent breath sounds on right, wheezing Gastrointestinal: soft, non-tender, non-distended Extremities: no cyanosis, no clubbing, no edema Neurological - other findings: moving arms and legs equally Hosp A/P (1) Pleural effusion, malignant Code(s): J91.0 - MALIGNANT PLEURAL EFFUSION Status: Acute (2) Sepsis Code(s): A41.9 - SEPSIS, UNSPECIFIED ORGANISM Status: Acute (3) HCAP (healthcare-associated pneumonia) Code(s): J18.9 - PNEUMONIA, UNSPECIFIED ORGANISM Status: Acute (4) Metastatic adenocarcinoma Code(s): C79.9 - SECONDARY MALIGNANT NEOPLASM OF UNSPECIFIED SITE Status: Acute (5) History of recent stroke Code(s): Z86.73 - PRSNL HX OF TIA (TIA), AND CEREB INFRC W/O RESID DEFICITS Status: Acute (6) Hypothyroid Code(s): E03.9 - HYPOTHYROIDISM, UNSPECIFIED Status: Chronic Qualifiers: Hypothyroidism type: unspecified Qualified Code(s): E03.9 - Hypothyroidism , unspecified (7) BPH (benign prostatic hyperplasia) Code(s): N40.0 - BENIGN PROSTATIC HYPERPLASIA WITHOUT LOWER URINRY TRACT SYMP Status: Chronic (8) HTN (hypertension) Code(s): I10 - ESSENTIAL (PRIMARY) HYPERTENSION Status: Chronic (9) Rheumatoid arthritis Code(s): M06.9 - RHEUMATOID ARTHRITIS, UNSPECIFIED Status: Chronic - Plan Appreciate Pulm consult - breonna out right side of CXR - await further recs - add brovana/budesonide - add prn albuterol for wheezing - continue IV steroids and broad spectrum abx Renal function stable d/c restraints hb slightly worse - continue monitoring dvt prophy - scds gi prophy - IV famotidine code status - full reviewed plan of care with pt's sister, no questions or further needs at end of eval pt remains at high risk in current condition
[2019-07-23] MEDS: Arformoterol 15 MCG/2 ML NEB NEB SCH ×2 (08:18→19:10)
[2019-07-23] MEDS: Budesonide 0.5 MG/2 ML NEB INH SCH ×2 (08:18→19:10)
[2019-07-23] MEDS ORDERED: Arformoterol 15 MCG/2 ML NEB ONE (08:33)
[2019-07-23] MEDS ORDERED: Budesonide 0.5 MG/2 ML NEB ONE (08:33)
[2019-07-23 08:41] LABS: Anion Gap 16 mmol/L (10-20); BUN (Urea Nitrogen) 35 mg/dL (8.4-25.7); Calc. Creatinine Clearance 102 mL/min (70-130); Calcium 9.6 mg/dL (7.8-10.44); Carbon Dioxide 20 mmol/L (23-31); Chloride 106 mmol/L (98-107); Estimated GFR-MDRD 65; Glucose 143 mg/dL (80-115); Potassium 5.1 mmol/L (3.5-5.1); Sodium 137 mmol/L (136-145)
[2019-07-23] MEDS: Sodium Chloride 0.9% 1,000 ML IV SCH ×2 (09:36→13:22)
--- NOTE | 2019-07-23 09:48 | PQF ---
EMELIA MURPHY YANCY MASON [id number] [facility] BO4 [id number] CLINICAL DOCUMENTATION IMPROVEMENT CLARIFICATION FORM: ICD-10 Updated PLEASE DO AN ADDENDUM TO THE PROGRESS NOTE WITH ANY DOCUMENTATION UPDATES OR ADDITIONS AND CARRY THROUGH TO DC SUMMARY. THANK YOU. DATE: 07/23/19 ATTN: Dr. Menendez Please exercise your independent, professional judgment in responding to the clarification form. Clinical indicators are provided on the bottom of this form for your review Please check appropriate box(s): [ ] Encephalopathy: Type: [ ] Acute [ ] Subacute [ ] Chronic Etiology: [ ] Metabolic due to Sepsis [ ] metabolic due to acute on chronic renal failure [ ] Toxic due to Levaquin(antibotics) [ ] Drug induced: [ ] Unspecified [ ] in the setting of underlying dementia [ ] Other (please specify) [ ] Transient Alteration of Awareness [ ] Other diagnosis [ xx ] Unable to determine In addition, please specify: Present on Admission (POA): [ ] Yes [xx ] No [ ] Unable to determine For continuity of documentation, please document condition throughout progress notes and discharge summary. Thank You. CLINICAL INDICATORS - SIGNS / SYMPTOMS / LABS / RESULTS AND LOCATION IN EMR Altered mental status / confusion--> 07/22 Saemer: "patient became agitated and picking at the air after starting Levaquin and Cefepime. says AMS with same abx last night. Possibly levaquin reaction." Sepsis/Infectious process--> 07/21 Sameer: "Postobstructive pneumonia with sepsis" metabolic abnormality--> 07/21 BUN 32, CREAT 1.75, lactic acid 3.2 per labs RISK FACTORS / RESULTS AND LOCATION IN EMR Infectious process--> 07/21 Sameer: "Postobstructive pneumonia with sepsis" Toxic substances / poisoning--> "Possibly levaquin reaction" per 07/22 Sameer Levaquin 750 mg 07/21-07/22 per orders TREATMENTS / RESULTS AND LOCATION IN EMR IV antibiotics--> Levaquin 750 mg 07/21-07/22 per orders stopped; continued cefepime 2gm IV BID 07/21 to date and vanc 2gm IV daily 07/21-07/22 to date per orders IV fluids--> 07/21 NS bolus 500 ml then NS at 100 07/21 to date per orders 07/22 restraint orders Transfer to [facility] 07/22 per orders (This form is maintained as a part of the permanent medical record) 2014 [employer]. All Rights Reserved Hattie Corrales RN, BSN, CCDS [email or web address]
[2019-07-23] MEDS: methylPREDNISolone Sod Succ 40 MG VIAL IVP SCH (09:49)
[2019-07-23] MEDS: Famotidine/PF 20 mg/2ml Vial SLOW IVP SCH ×3 (09:49→20:30)
[2019-07-23] MEDS: Folic Acid 1 MG TAB PO SCH (09:49)
[2019-07-23] MEDS: Tamsulosin HCl 0.4 MG CAP PO SCH (09:49)
--- NOTE | 2019-07-23 10:09 | PQF ---
[employer] Director Crystal Reports EMELIA Brennan DENA [id number] [facility]-285 [id number] CLINICAL DOCUMENTATION IMPROVEMENT CLARIFICATION FORM: ICD-10 Updated PLEASE DO AN ADDENDUM TO THE PROGRESS NOTE WITH ANY DOCUMENTATION UPDATES OR ADDITIONS AND CARRY THROUGH TO DC SUMMARY. THANK YOU. DATE: 07/22/19 ATTN: Dr. Menendez Please exercise your independent, professional judgment in responding to the clarification form. Clinical indicators are provided on the bottom of this form for your review Please check appropriate box(s): [ xx ] Acute Respiratory Failure: [ xx ] with Hypoxia secondary to malignant effusion [ ] Acute Respiratory Failure due to: (etiology) [ ] Acute Respiratory failure due to complication of Thoracentesis [ ] Acute Respiratory failure not a complication of Thoracentesis [ ] Respiratory Insufficiency [ ] Hypoxia [ ] Other diagnosis [ ] Unable to determine In addition, please specify: Present on Admission (POA): [xx ] Yes [ ] No [ ] Unable to determine For continuity of documentation, please document condition throughout progress notes and discharge summary. Thank You. CLINICAL INDICATORS - SIGNS / SYMPTOMS / LABS / RESULTS AND LOCATION IN MR ABG pH < 7.35 or > 7.45--> 07/22 lab: "ABG 7.33/35/75 on 3L of oxygen" per 07/23 Migel note 07/23 Shon: "overnight pt with AMS and increased work of breathing" 1/2 HR 130, RR 32 per VS 07/22 CXR: persistent opacification of the majority of the right hemithorax, similar to prior. RISK FACTORS / RESULTS AND LOCATION IN MR 07/21 Brading: "Malignant pleural effusion" / Brading: "Hemothorax" 1/2 Right thoracentesis with 200 ml out per Op note TREATMENTS / RESULTS AND LOCATION IN MR Oxygen--> /2-/ Bipap per orders Monitoring of oxygenation status IMCU transfer 1/2 per orders Respiratory treatments--> Brovana 15 mcg neb BID 07/23 Solu Medrol 125 mg IV once; Solu Medrol 40mg IV daily 07/23 per orders ABGs 1/2 per orders Antibiotics IV--> Cefepime 2gm IV 07/21 to date per orders: Vancomycin 1gm IV 07/21 to date per orders Acute Respiratory Failure: ABG pH < 7.35 or > 7.45; Decreased oxygen saturation (<90% room air or < 95% on oxygen); PCO2 > 50 mm Hg; PO2 < 60 mm Hg; Labored or rapid respirations ARDS: Dx Criteria [[place] ARDS]: Respiratory symptoms within one week of a known clinical insult (e.g. shock, infection, surgery, trauma) Bilateral opacities in CXR/Chest CT not due to CHF or fluid (This form is maintained as a part of the permanent medical record) 2014 [employer]. All Rights Reserved Hattie Corrales RN, BSN, CCDS [email or web address] [phone] MTDD
[2019-07-23 13:28] VITALS: BP 114/74
[2019-07-23 14:30] LABS: Vancomycin, Trough 10.2 ug/mL
[2019-07-23] MEDS ORDERED: Fluconazole 100 MG TAB PO SCH (14:45)
--- NOTE | 2019-07-23 15:22 | PRG ---
DATE OF SERVICE: SERVICE: Pulmonary Medicine. INTERVAL HISTORY: Overnight, the patient had an agitation spell. As such, he ended up being rapid and brought to the intermediate care unit. He denies any current fevers or chills. He is on room air. He does not seem to have any respiratory-related issues. Otherwise, there has been no interval change to his condition. The patient was aggressively volume repleted when he came to the emergency department. He got multiple boluses of fluid there, an additional bolus of fluid on the floor. He was also running at 100 an hour for a period of time. His hemoglobins have trended downward, but they seemed to have leveled off slightly. Otherwise, there has been no interval change to his condition. PHYSICAL EXAMINATION: VITAL SIGNS: Afebrile, pulse 108, blood pressure 182/96, respirations 21, and saturation 98% on room air. GENERAL: The patient is awake and alert, in no apparent distress. LUNGS: Decent air entry on the left. There is no air entry on the right. No prolonged expiratory phase or wheezing is appreciated otherwise. HEART: Normal rate, regular. ABDOMEN: Soft, nontender, and nondistended. Bowel sounds are positive. MUSCULOSKELETAL: No cyanosis or clubbing. No pitting in the bilateral lower extremities. NEUROLOGIC: Grossly nonfocal. LABORATORY DATA: Hemoglobin 11.7, roughly stable; WBC is gently downtrending; platelets 104,000. PH of 7.33, pCO2 of 35, and pO2 of 75. Creatinine has improved to 1.35. Basic metabolic profile is otherwise unremarkable. Bicarb is trended downward to 20. All culture results are negative to date. Urine culture is growing presumptive Judy albicans, though the body fluid culture is negative. ASSESSMENT: 1. Severe sepsis, improving. 2. Healthcare-associated pneumonia, possible. 3. Malignant pleural effusion with current superimposed hemothorax. DISCUSSION AND PLAN: The hemoglobins have stabilized. I will contact the Cardiothoracic Surgery to consider him for PleurX catheter versus decortication in 24 hours. Critical Care will continue to follow along. Job ID: [id number]
[2019-07-23 15:26] LABS: INR-International Normal Ratio 1.5; Prothrombin Time 17.6 SEC (12.0-14.7)
[2019-07-23] MEDS: Vancomycin 1.5 GRAM/300 ML BAG 1.5 GM in Premix Bag 1 BAG IVPB SCH (16:10)
--- NOTE | 2019-07-23 17:55 | CON ---
DATE OF CONSULTATION: 07/23/2019 REASON FOR CONSULTATION: Evaluate the patient with a loculated right pleural effusion with history of malignant pleural effusion. HISTORY OF PRESENT ILLNESS: Mr. Manley is a 63-year-old gentleman, who has widely metastatic adenocarcinoma of the lung. He sustained a fall, was tachycardic and admitted to the hospital. He was found in late June to have a loculated pleural effusion, which was tapped. Chest x-ray at this admission showed reopacification of his right chest. He underwent thoracentesis at admission, 200 mL were withdrawn and sent for analysis. So far, cultures have been negative. The patient has remained with a white blood cell count that is elevated in the 25 to 28 range. He has not been febrile. He has been on cefepime since admission. I have been asked to see him to discuss further management strategies for this loculated right effusion. PAST MEDICAL HISTORY: 1. Widely metastatic adenocarcinoma of the lung. 2. Malignant right pleural effusion. 3. Hypertension. 4. History of rheumatoid arthritis. 5. BPH. 6. History of recent CVA with left-sided debility and speech impediment. PAST SURGICAL HISTORY: 1. Back surgery. 2. Thyroidectomy. 3. Left ankle surgery. 4. Left wrist surgery. SOCIAL HISTORY: He does not use alcohol, tobacco, or other drugs. ALLERGIES: CODEINE. REVIEW OF SYSTEMS: Not performed due to the patient's inability to speak. The patient does communicate with head nods and will grunt and nod his head to answer questions. PHYSICAL EXAMINATION: GENERAL: This is a well-developed, well-nourished man, resting comfortably in the [facility]. VITAL SIGNS: His height is 6 feet 4 inches and weight is 275 pounds. Temperature is 97.6, pulse is 100 and regular, and blood pressure is 114/74. HEENT: Sclerae nonicteric. Pupils are equal and round bilaterally. NECK: Supple without bruit. CHEST: Diminished breath sounds throughout his right chest. HEART: Rhythm is regular. ABDOMEN: Soft and nontender. EXTREMITIES: There is bilateral pitting edema. LABORATORY DATA: I reviewed his chest x-rays and CT from 07/15. ASSESSMENT AND PLAN: Loculated right either malignant effusion or empyema. We will plan for thoracentesis and leave a PleurX catheter at completion. I have discussed this with the patient's and we will plan for surgery tomorrow. Job ID: [id number]
[2019-07-23] MEDS: Atorvastatin Calcium 40 MG TAB PO SCH (20:29)
[2019-07-23] MEDS: Lorazepam 2 MG/ML VIAL SLOW IVP PRN (20:35)
[2019-07-23] MEDS ORDERED: diphenhydrAMINE 50 MG/ML VIAL IVP SCH (22:00)
[2019-07-24] MEDS: metroNIDAZOLE 500 MG in Premix Bag 1 BAG IVPB SCH ×3 (01:55→17:14)
[2019-07-24] MEDS: Ipratropium Bromide 2.5 ml Neb NEB SCH ×5 (02:42→18:53)
[2019-07-24] MEDS: Vancomycin 1.5 GRAM/300 ML BAG 1.5 GM in Premix Bag 1 BAG IVPB SCH ×2 (03:00→16:21)
[2019-07-24] MEDS: Lorazepam 2 MG/ML VIAL SLOW IVP PRN (03:22)
[2019-07-24 04:34] LABS: Anion Gap 17 mmol/L (10-20); BUN (Urea Nitrogen) 48 mg/dL (8.4-25.7); Calc. Creatinine Clearance 89 mL/min (70-130); Calcium 9.4 mg/dL (7.8-10.44); Carbon Dioxide 17 mmol/L (23-31); Chloride 110 mmol/L (98-107); Estimated GFR-MDRD 56; Glucose 123 mg/dL (80-115); Magnesium 2.4 mg/dL (1.6-2.6); Phosphorus 4.2 mg/dL (2.3-4.7); Potassium 4.7 mmol/L (3.5-5.1); Sodium 139 mmol/L (136-145)
[2019-07-24] MEDS: Cefepime 2 GM in Sodium Chloride 0.9% 100 ML IVPB SCH ×2 (04:46→17:14)
[2019-07-24 04:52] LABS: Band 20 % (5-11); Eosinophils 2 % (0-10); Hemoglobin 11.6 g/dL (14.0-18.0); Lymphocytes 4 % (21-51); MDiff Complete? YES; Mean Corpuscular HGB CONC 33.2 g/dL (32.0-36.0); Mean Corpuscular Hemoglobin 31.4 pg (27.0-31.0); Mean Corpuscular Volume 94.3 fL (78.0-98.0); Mean Platelet Volume 9.7 fL (7.4-10.4); Monocytes 5 % (0-10); Neutrophil 69 % (42-75); Platelet Count 80 thou/uL (130-400); Platelet Morphology Comment Appears Decreased; Polychromasia SLIGHT = 2-3 cells (100X) (0-2/hpf); RBC Distribution Width 12.1 % (11.5-14.5); Red Blood Cell (RBC) Count 3.69 mill/uL (4.70-6.10); Vacuoles SLIGHT; White Blood Cell (WBC) Count 31.5 thou/uL (4.8-10.8)
[2019-07-24] MEDS: Levothyroxine Sodium 100 MCG TAB PO SCH (05:09)
[2019-07-24] MEDS: Arformoterol 15 MCG/2 ML NEB NEB SCH ×2 (06:54→18:54)
[2019-07-24] MEDS: Budesonide 0.5 MG/2 ML NEB INH SCH ×2 (06:55→18:54)
[2019-07-24] MEDS ORDERED: Fentanyl 250 MCG/5 ML VIAL ONE (07:44)
[2019-07-24] MEDS ORDERED: EPINEPHrine 1 MG/ML AMP ONE (07:50)
[2019-07-24] MEDS ORDERED: Bupivacaine PF 0.5% 30 ML VIAL ONE (07:50)
[2019-07-24] MEDS ORDERED: Fluconazole 100 MG TAB PO SCH (09:00)
[2019-07-24] MEDS ORDERED: Lidocaine 1% PF 5 ML VIAL ONE (10:24)
[2019-07-24] MEDS ORDERED: Ondansetron PF 4 MG/2 ML Vial ONE (10:24)
[2019-07-24] MEDS ORDERED: Rocuronium Bromide 10 MG/ML (10ML VIAL) ONE (10:24)
[2019-07-24] MEDS ORDERED: Glycopyrrolate 0.2 MG/ML 5 ML SYRINGE ONE (10:24)
[2019-07-24] MEDS ORDERED: PROPOFOL 200 MG/20 ML VIAL ONE (10:24)
--- NOTE | 2019-07-24 11:12 | RAD ---
PORTABLE CHEST ONE VIEW: 07/24/2019 10:57 a.m. HISTORY: Post right thoracoscopy. COMPARISON: 07/22/2019 FINDINGS: Interval postop changes are seen in the right hemithorax with subcutaneous emphysema in the right lat eral chest wall and placement of a right sided chest tube. There is opacification in the right lung. A small pneumothorax is seen in the right lung base. Heart size is stable. Left lung is unremarkable. POS: CHALO
[2019-07-24] MEDS: methylPREDNISolone Sod Succ 40 MG VIAL IVP SCH (12:15)
[2019-07-24] MEDS: Famotidine/PF 20 mg/2ml Vial SLOW IVP SCH (12:42)
[2019-07-24] MEDS: Folic Acid 1 MG TAB PO SCH (12:42)
[2019-07-24] MEDS: Tamsulosin HCl 0.4 MG CAP PO SCH (12:43)
[2019-07-24] MEDS ORDERED: Fentanyl 100 MCG/2 ML VIAL SLOW IVP PRN ×2 (14:53→14:54)
--- NOTE | 2019-07-24 14:59 | PDOC.HOSPP ---
- Subjective Encounter Date: 07/24/19 (f/u metastatic disease) Encounter Time: 14:57 Subjective: Pt s/p pleur-x cath placement -large amount of blood evacuated from right side of chest, large amount of aspirated material removed by bronchoscopy and a large amount of tumor burden visualized. Pt is currently tachycardic and tachypneic. - Objective Vital Signs & Weight: Vital Signs (12 hours) Temp Pulse Resp Pulse Ox 07/24/19 14:33 123 H 32 H 94 L 07/24/19 07:20 98.9 F 99 07/24/19 06:54 93 24 H 97 07/24/19 04:00 98.2 F Weight Weight 272 lb 14.916 oz Most Recent Monitor Data Heart Rate from ECG 113 NIBP 127/81 NIBP BP-Mean 96 Respiration from ECG 37 SpO2 99 I&O: 07/23/19 07/24/19 07/25/19 06:59 06:59 06:59 Intake Total 1841 1250 Output Total 1300 975 Balance 541 275 Result Diagrams: 07/24/19 03:43 07/24/19 03:43 EKG Reviewed by me: Yes (tele - sinus 120's) Hospitalist ROS - Medication Medications: Active Medications Generic Name Dose Route Start Last Admin Trade Name Freq PRN Reason Stop Dose Admin Hydrocodone Bitart/Acetaminophen 2 tab 07/21/19 09:50 07/22/19 20:53 [place] 5/325 PO 2 tab Q4H PRN Administration Severe Pain (7-10) Arformoterol Tartrate 15 mcg 07/23/19 18:30 07/24/19 06:54 Brovana NEB 15 mcg BID-RT MICHAEL Administration Atorvastatin Calcium 40 mg 07/21/19 21:00 07/23/19 20:29 Lipitor PO 40 mg HS MICHAEL Administration Budesonide 0.5 mg 07/23/19 18:30 07/24/19 06:55 Pulmicort Neb Solution INH 0.5 mg BID-RT MICHAEL Administration Fluconazole 100 mg 07/24/19 09:00 07/24/19 12:42 Diflucan PO 07/29/19 09:01 Not Given DAILY MICHAEL Folic Acid 1 mg 07/22/19 09:00 07/24/19 12:42 Folvite PO Not Given DAILY MICHAEL Cefepime HCl 2 gm/ Sodium 100 mls @ 200 mls/hr 07/21/19 17:00 07/24/19 04:46 Chloride IVPB 100 mls 0500,1700 MICHAEL Administration Metronidazole 500 mg/ Device 100 mls @ 100 mls/hr 07/23/19 02:00 07/24/19 12: 15 IVPB 100 mls 0200,1000,1800 MICHAEL Administration Vancomycin HCl 1.5 gm/ Device 300 mls @ 200 mls/hr 07/23/19 15:00 07/24/19 03 :00 IVPB 300 mls 0300,1500 MICHAEL Administration Ipratropium [place] 2.5 ml 07/23/19 02:30 07/24/19 14:33 Atrovent NEB 2.5 ml [id number] MICHAEL Administration Levothyroxine Sodium 200 mcg 07/22/19 06:00 07/24/19 05:09 Synthroid PO Not Given 0600 MICHAEL Lorazepam 0.5 mg 07/23/19 14:54 07/24/19 03:22 Ativan SLOW IVP 0.5 mg Q6H PRN Administration Anxiety/Agitation Methylprednisolone Sodium Succinate 40 mg 07/23/19 09:00 07/24/19 12:15 Solu-Medrol IVP 40 mg DAILY MICHAEL Administration Tamsulosin HCl 0.4 mg 07/22/19 09:00 07/24/19 12:43 Flomax PO Not Given DAILY MICHAEL - Exam General - other findings: eyes open briefly, appears uncomfortable Heart: RRR, no murmur Respiratory - other findings: no significant air movement on right side, normal on left Gastrointestinal: soft, non-distended, normal bowel sounds Extremities: no cyanosis, no clubbing, no edema Hosp A/P (1) Pleural effusion, malignant Code(s): J91.0 - MALIGNANT PLEURAL EFFUSION Status: Acute (2) Sepsis Code(s): A41.9 - SEPSIS, UNSPECIFIED ORGANISM Status: Acute (3) HCAP (healthcare-associated pneumonia) Code(s): J18.9 - PNEUMONIA, UNSPECIFIED ORGANISM Status: Acute (4) Metastatic adenocarcinoma Code(s): C79.9 - SECONDARY MALIGNANT NEOPLASM OF UNSPECIFIED SITE Status: Acute (5) History of recent stroke Code(s): Z86.73 - PRSNL HX OF TIA (TIA), AND CEREB INFRC W/O RESID DEFICITS Status: Acute (6) Hypothyroid Code(s): E03.9 - HYPOTHYROIDISM, UNSPECIFIED Status: Chronic Qualifiers: Hypothyroidism type: unspecified Qualified Code(s): E03.9 - Hypothyroidism , unspecified (7) BPH (benign prostatic hyperplasia) Code(s): N40.0 - BENIGN PROSTATIC HYPERPLASIA WITHOUT LOWER URINRY TRACT SYMP Status: Chronic (8) HTN (hypertension) Code(s): I10 - ESSENTIAL (PRIMARY) HYPERTENSION Status: Chronic (9) Rheumatoid arthritis Code(s): M06.9 - RHEUMATOID ARTHRITIS, UNSPECIFIED Status: Chronic (10) Hemothorax Code(s): J94.2 - HEMOTHORAX Status: Acute (11) Aspiration into airway Code(s): T17.908A - UNSP FB IN RESP TRACT, PART UNSP CAUSING OTH INJURY, INIT Status: Acute (12) Tachycardia Code(s): R00.0 - TACHYCARDIA, UNSPECIFIED Status: Acute (13) Thrombocytopenia Code(s): D69.6 - THROMBOCYTOPENIA, UNSPECIFIED Status: Acute - Plan Appreciate [facility] consult - d/w Dr. Ho findings during the procedure - placement of cath today Suspect tachy is related to pain - ordered low dose fentanyl prn Appreciate Pulm consult NPO due to aspiration - need to discuss with patient's /surrogate decision maker what the goals of care are as the pt is not safe to eat - start IVF thrombocytopenia - currently 80k - d/c famotidine - start IV PPI Renal function stable hemothorax now with pleur-x cath - monitor hemoglobin dvt prophy - scds gi prophy - IV famotidine code status - full pt remains at high risk in current condition
[2019-07-24] MEDS ORDERED: ACETAMINOPHEN IVPB SCH (15:00)
[2019-07-24] MEDS ORDERED: Dextrose 5 %-0.45 % NaCl 1,000 ML IV SCH (15:00)
--- NOTE | 2019-07-24 15:44 | OP ---
DATE OF PROCEDURE: 07/24/2019 PREOPERATIVE DIAGNOSIS: Metastatic lung cancer with recurrent right hemothorax. POSTOPERATIVE DIAGNOSIS: Metastatic lung cancer with recurrent right hemothorax. PROCEDURES PERFORMED: 1. Therapeutic bronchoscopy. 2. Right thoracoscopy with evacuation of hemothorax - 2500 mL of bloody fluid was evacuated. 3. PleurX catheter placement. ANESTHESIA: General endotracheal. ANESTHESIOLOGIST: Ramin Beltran MD ESTIMATED BLOOD LOSS: Minimal. DRAIN: PleurX catheter. SPECIMENS: None. DESCRIPTION OF PROCEDURE: After consent was obtained, the patient was brought to the operating room and placed in supine position on the operating room table. Appropriate central line was placed. On placement of his endotracheal tube, we noted that there was a large amount of aspirated-appearing material. He was re-intubated with #8 endotracheal tube. A large bronchoscope was brought in, and therapeutic bronchoscopy with washing was performed. Once we irrigated all the material clear from his tracheobronchial tree, he was re-intubated with a double-lumen tube. The patient was then partially placed in the left lateral decubitus position. Joints were appropriately padded. SCDs were used. Right chest wall was prepped and draped in usual sterile fashion. Two port incisions were made. A suction catheter was inserted, and 2500 mL of bloody fluid was evacuated initially. On insertion of the thoracoscope, the lung was not being ventilated, but was not collapsed. At the time of bronchoscopy, there was a large amount of intratracheal and intrabronchial what appeared to be malignant material. I do not think we were able to adequately decompress the right side to fully perform thoracoscopy. After all the bloody fluid had been evacuated, the PleurX catheter was tunneled and positioned with the thoracoscope. Wounds were injected with local anesthetic and closed in layers. Sterile dressings were applied. The patient was awakened, extubated, and transferred to the recovery room in guarded condition. Job ID: [id number]
[2019-07-24 15:45] LABS: Actual Bicarbonate (HCO3a) 12.6 mEq/L (22-28); Base Excess (BEa) -10.5 mEq/L (-2.0 to +3.0); Calcium, Ionized 1.24 mmol/L (1.12-1.30); Carboxyhemoglobin (COHb) 1.2 gm% (0.0-3.0); Hemoglobin (Hb) 13.7 g/dL (14.0-18.0); Potassium - ABG Lab 5.38 mmol/L (3.70-5.30); pH, Arterial 7.37 (7.35-7.45)
[2019-07-24] MEDS ORDERED: Fluconazole In NaCl,Iso-Osm 100 MG IVPB SCH (16:00)
[2019-07-24 16:07] LABS: CO2 Tension 22.2 mmHg (35.0-45.0)
[2019-07-24 16:08] LABS: O2 Tension (PaO2) 53.3 mmHg (> 80.0)
[2019-07-24 16:09] LABS: Puncture Site RRA
[2019-07-24 16:35] VITALS: TEMP 97.8
--- NOTE | 2019-07-24 16:35 | PRG ---
DATE OF SERVICE: 07/24/2019 SERVICE: Pulmonary Medicine. INTERVAL HISTORY: The patient went down for decortication today. A PleurX was left behind. They had a hard time placing the double-lumen tube. They did a quick bronch, and realized that there was endobronchial mass growing into the distal trachea, and proximal right stem bronchi. He cannot provide any additional elements of the history. Currently, he is obtunded, and he is tachypneic. He is grunting, and has some degree of respiratory distress associated with paradoxical movement of the abdomen. PHYSICAL EXAMINATION: VITAL SIGNS: Afebrile currently. Pulse 123, blood pressure 127/81, respirations 37, saturation 99%, currently on room air. GENERAL: The patient is somnolent. He is in [id number] respiratory distress. HEENT: Normocephalic and atraumatic. Sclerae white. Conjunctivae pink. Oral mucosa is moist without lesions. LUNGS: Decent air entry. He has a prolonged expiratory phase and wheezing is appreciated. HEART: Normal rate. Regular. ABDOMEN: Soft. Distended. Bowel sounds are hypoactive. MUSCULOSKELETAL: No cyanosis or clubbing. There is no edema. NEUROLOGIC: Grossly nonfocal. LABORATORY DATA: WBC 31.5, hemoglobin 11.6, platelets 80,000. INR 1.5. PH 7.33, pCO2 of 35, pO2 of 75. Creatinine 1.55 and gently up trending, BUN 48. Bicarb 17, anion gap is stable. Basic metabolic profile is otherwise unremarkable. Magnesium and phosphorous fall within normal limits. Urine culture is growing presumptive Judy albicans. Blood cultures x2 and body fluid culture negative to date. IMAGING: Chest x-ray demonstrates postoperative changes in the right hemithorax with subcutaneous emphysema on the right lateral wall and placement of the right-sided chest tube. Opacification of the right lung is present. Left lung is unremarkable. There is a residual hydropneumothorax on the right. Trachea is currently midline. There is significant air in the stomach. ASSESSMENT: 1. Severe sepsis. 2. Healthcare-associated pneumonia, possible. 3. Malignant pleural effusion with superimposed hemothorax, status post decortication, and PleurX catheter placement, postop day 1. 4. Adenocarcinoma of the lung, widely metastatic. 5. Oropharyngeal dysphagia, severe. 6. Debility. DISCUSSION AND PLAN: We will decompress the patient's stomach and get an ABG. If there are significant abnormalities there, we will likely need him into move the unit, and consider intubating him. Long-term prognosis is very poor if we cannot get this man to an outpatient appointment, so he can get his immunotherapy. That being said, he does have a chance of response if we can get him there. Because of his horrendous oropharyngeal dysphagia, we will need to make him n.p.o. Pulmonary will continue to follow. Job ID: [id number] [facility]
[2019-07-24] MEDS ORDERED: Midazolam HCl 2 mg/2 ml Vial ONE (19:21)
[2019-07-24] MEDS ORDERED: Midazolam HCl 2 mg/2 ml Vial SLOW IVP SCH (19:30)
[2019-07-25] MEDS ORDERED: Pantoprazole 40 MG VIAL IVP SCH (09:00)
[2019-07-25] MEDS ORDERED: Fluconazole In NaCl,Iso-Osm 100 MG IVPB SCH (09:00)
--- NOTE | 2019-07-25 16:46 | DIS ---
DATE OF ADMISSION: 07/21/2019 DATE OF DISCHARGE: 07/24/2019 DATE OF : 07/24/2019. TIME OF : 2101 hours. CONSULTANTS: For the patient's care were; 1. Pulmonology, Dr. Fontana. 2. Cardiovascular surgery, Dr. Ho. PROCEDURES PERFORMED: PleurX catheter placement and bronchoscopy performed on July 24, 2019. CAUSE OF : 1. Metastatic lung cancer with right hemothorax causing acute respiratory failure. 2. Sepsis secondary to pneumonia. 3. Thrombocytopenia. 4. Acute kidney injury versus chronic kidney disease. SECONDARY DIAGNOSES: 1. Hypertension. 2. Recent stroke. 3. Benign prostatic hyperplasia. 4. Hypertension. HISTORY OF PRESENT ILLNESS: Mr. Manley was a 63-year-old male with a recent stroke approximately 10 days prior to this admission, resulting in slurred speech, facial droop, and left upper extremity weakness. He also had a recent diagnosis of lung cancer with a malignant effusion, diagnosis of adenocarcinoma with metastases. The patient presented to the emergency room with tachycardia, significant leukocytosis, concern for postobstructive pneumonia and sepsis and was admitted to the hospital. HOSPITAL COURSE: The patient was started on broad-spectrum antibiotics. He underwent thoracentesis with removal of only 200 mL of bloody fluid. More was not removed secondary to immediate concern that the patient was experiencing a hemothorax. The fluid did contain malignant cells. Because of the large volume hemothorax, Dr. Ho of Cardiovascular Surgery was consulted for consideration of PleurX catheter. The patient did undergo a bronchoscopy initially with visualization of significant tumor as well as aspirated material in the bronchi, which was suctioned. He then had PleurX catheter inserted with removal of 2500 mL of bloody fluid. The patient then returned back to his room. Throughout the day, the patient became increasingly tachypneic, tachycardic, and was moved over to the ICU. Because of the worsening of his status, there was concern of that intubation would be required. Discussion occurred between Dr. Fontana and the patient's , and the patient's wishes were no life prolonging treatment in the face of a known terminal illness. Therefore, in respect of this stated request, intubation was not pursued. The patient did go on to pass at 2101 hours. Other hospital events: The patient overnight from July 22 to became agitated on the floor, pulling out things, was transferred to the [facility]. He did require medications as well as soft restraints to help safely manage at this time. He remained in the IMCU until July 24 when he was transferred to the ICU. MONTERO FINDINGS AND TEST RESULTS: Here on day of : His CBC 31.5, 11.6, 34.8, and 80. His white blood cell count ranged from 25.9 to 31.5. INR 1.5. Chemistry on July 24, 139, 4.7, 110, 17, 48, 1.55, and 123. Lactic acid on July 22 was 3.2. Prolactin on July 22, 23.78. LFTs on July 21, T-bili 0.6, AST 20, ALT 17, alkaline phosphatase 91, total protein 7.5, and albumin 3.8. Pleural fluid showed 11,973 white blood cells, greater than 890,000 red blood cells, fluid hemoglobin 8.7, 63% neutrophils, 9% lymphocytes, total protein 7.5, LDH 2184, pleural glucose less than 20. Urine culture shows presumptive Judy. Body fluid culture, moderate white blood cells and red blood cells. No organisms. Blood cultures July 21, negative x2 sets. Chest x-ray on July 24 shows interval postop changes in the right hemithorax with subcutaneous emphysema in the right lateral chest wall and placement of right-sided chest tube, opacification in the right lung, small pneumothorax in the right lung base. Chest x-ray on July 22, stable radiographic appearance with persistent opacification of the majority of the right hemithorax similar to prior. Brain CT on July 22, stable CT of the brain with respect to 07/21/2019, hypodensity in the posterior left parietal region with some central hyperdensity , not significantly changed. There was an area of restricted diffusion on prior MRI suggesting evolving infarction. C-spine CT on July 21, no evidence of acute osseous abnormality of the cervical spine, inflammatory process surrounding the odontoid process. Brain CT on July 21, evolving process in the left parietal lobe, stable compared to prior exam, no evidence of an acute intracranial abnormality. Chest x-ray on July 21, large right pleural effusion with adjacent atelectasis. TIME SPENT: Total time coordinating discharge is less than 30 minutes. Job ID: [id number] [id number]
== END 2019-07-24 21:01 | disposition expired | DRG 853 ==
LOC: ERS 03:48 → OBSVTOIN 05:25 → SURG A 05:25 → 2NO 13:17 → IMCU/EMU 07-23 00:16 → CCU 07-24 18:31
PROVIDERS: ADMIT Internal Medicine; ATTEND Internal Medicine
PROC: 0W993ZZ Drainage of Right Pleural Cavity, Percutaneous Approach (ICD-10-PCS; 2019-07-21)
PROC: 5A09357 Assistance with Respiratory Ventilation, Less than 24 Consecutive Hours, Continuous Positive Airway Pressure (ICD-10-PCS; 2019-07-22)
PROC: 0W9940Z Drainage of Right Pleural Cavity with Drainage Device, Percutaneous Endoscopic Approach (ICD-10-PCS; principal; 2019-07-24)
PROC: 3E1F88Z Irrigation of Respiratory Tract using Irrigating Substance, Via Natural or Artificial Opening Endoscopic (ICD-10-PCS; 2019-07-24)
DX: A41.9 Sepsis, unspecified organism (principal); J18.9 Pneumonia, unspecified organism; J96.01 Acute respiratory failure with hypoxia; J94.2 Hemothorax; N17.9 Acute kidney failure, unspecified; I69.354 Hemiplegia and hemiparesis following cerebral infarction affecting left non-dominant side; E87.2 Acidosis; J91.0 Malignant pleural effusion; C34.91 Malignant neoplasm of unspecified part of right bronchus or lung; Z66 Do not resuscitate; I12.9 Hypertensive chronic kidney disease with stage 1 through stage 4 chronic kidney disease, or unspecified chronic kidney disease; N40.0 Benign prostatic hyperplasia without lower urinary tract symptoms; M06.9 Rheumatoid arthritis, unspecified; E89.0 Postprocedural hypothyroidism; R65.20 Severe sepsis without septic shock; Y95 Nosocomial condition; N18.2 Chronic kidney disease, stage 2 (mild); Z88.5 Allergy status to narcotic agent; I69.392 Facial weakness following cerebral infarction; I69.322 Dysarthria following cerebral infarction; Z87.891 Personal history of nicotine dependence; Z79.899 Other long term (current) drug therapy; Z79.82 Long term (current) use of aspirin; Z79.890 Hormone replacement therapy
CPT/HCPCS: 36415; 36416; 70450; 71045; 72125; 80048; 80053; 80202; 82550; 82553; 82805; 82945; 83605; 83615; 83735; 83880; 84100; 84146; 84157; 84484; 85014; 85018; 85025; 85060; 85610; 86850; 86900; 86901; 87040; 87070; 87086; 87205; 88112; 88305; 89051; 93005; 94640; 94660; 96361; 96365; 96367; 96375; 96376; C1729; J0171; J0692; J1200; J1450; J1642; J1650; J1956; J2001; J2060; J2250; J2270; J2405; J2704; J2920; J2930; J3010; J3370; J3490; J7050; J7626; S0020; S0028